=== PATIENT | female | born 1955 | race Caucasian/White ===

== ENCOUNTER 2018-04-08 06:08 | Observation (INO) | payer BC, SELFPAY ==
[2018-04-08] VITALS (9 sets, daily range): BP systolic 97–156; BP diastolic 58–83; PULSE 61–69; RESP 15–25; TEMP 36.4–36.7; O2SAT 93–99; BMI 31.2; BMI 30.1; BMI 30.2
--- NOTE | 2018-04-08 06:11 | ED.RN ---
CALLED FOR EKG PER RN REQUEST, NO OLD EKGS IN MUSE
--- NOTE | 2018-04-08 06:21 | ED.DCSUM_ITS ---
- ER Visit Summary Date of Service: 04/08/18 Chief Complaint: [] Chest pain History of Present Illness: The patient is a 62 F planing of chest pain for last 2 hours gradual onset came on at work when she was resting. Continuous heaviness substernal radiation left arm current severity moderate to severe. She took aspirin 182 milligrams as well as Lopressor. She had a tight sensation in her left arm. Associated with some mild nausea mild lightheadedness. She does have history of hypertension high cholesterol smoking. Her last stress test was 2 years ago at [facility] that showed nothing acute. She had a heart cath 10 years ago that showed no ischemia. This was when she was diagnosed with pericarditis. She does have a history of mitral valve prolapse. Physical Examination: [] Vital signs reviewed General: Well-nourished well-developed Head: Normocephalic atraumatic Eyes: Pupils equal round and reactive to light extraocular movements intact ENT: TMs clear no hemotympanum no trauma Neck: Nontender full range of motion Cardiovascular: Regular rate rhythm no murmurs normal S1-S2 Respiratory: No distress clear to auscultation bilaterally chest nontender Abdomen: Soft nontender nondistended normal bowel sounds no masses Back: Nontender no CVA tenderness Extremities: Nontender active range of motion ?4 extremities no trauma Skin: Normal color no trauma Neuro alert oriented cranial nerves II through XII intact normal strength sensation reflexes Test Results: [] Emergency Department Course and Treatment: [] EKG shows sinus rhythm at a rate of 69. No acute ischemia findings. Lab work chest x-ray obtained. Patient given sublingual nitroglycerin. This dropped her pressure to 90s but she feels significantly better. Chest x-ray lab work unremarkable. She will be admitted for cardiac rule out further evaluation Treatment Plan: [] Disposition: [] Impression: [] Chest pain This note was generated with Move[employer] dictation software. It may contain incorrect words, spelling, and punctuation that were not noted in review of the chart prior to signing ED Disposition - Plan for ED Patient: Chief Complaint: Chest Pain Referrals: [facility] Doctor,Out of [NON-STAFF] -
[2018-04-08 07:00] LABS: Absolute Lymphocyte Count 2.75 X10^3/ul (0.83-4.51); Absolute Neutrophil Count 3.7 X10^3/uL (2.0-7.7); Basophil# 0.05 X10^3/uL; Basophil% 0.7 % (0-1); Differential Indicated SCAN CRITERIA MET; Eosinophil# 0.17 X10^3/uL; Eosinophils% 2.2 % (0-5); Hemoglobin 13.8 g/dl (12.0-15.0); Lymphocyte # 2.75 X10^3/ul (4.0); Mean Corp Hgb Conc 32.9 g/gl (32-36); Mean Corpuscular Hgb 30.3 pg (27.0-32.0); Mean Corpuscular Volume 92.1 fL (81-99); Mean Platelet Vol. 9.3 fl (6.2-12.0); Monocyte# 0.93 X10^3/uL; Monocyte% 12.2 % (0-10); Neutrophil # 3.72 X10^3/uL (2.7-7.7); Neutrophil % 48.8 % (47-70); POSITIVE COUNT NO; POSITIVE DIFFERENTIAL NO; POSITIVE MORPHOLOGY YES; Platelet Count 313 K/mm3 (150-450); RBC Distribution Width CV 13.9 % (11.6-14.6); RBC Distribution Width SD 45.4 fl (35.1-43.9); Red Blood Count 4.56 M/mm3 (4.2-5.4); White Blood Count 7.6 K/mm3 (4.4-11.0)
[2018-04-08 07:04] LABS: Anion Gap 10 (5-15); BUN 14 mg/dL (7-18); BUN/Creat Ratio 10.1 RATIO (10-20); Calcium,Total 8.8 mg/dL (8.5-10.1); Chloride 108 mmol/L (98-107); Creatinine, Serum 1.39 mg/dL (0.55-1.02); EST Glomerular Filtration Rate 41 mL/min (>60); Est Glom Filt Rate - Afr Amer 49 mL/min (>60); Estimated Creatinine Clearance 31.67 ml/min; Glucose 106 mg/dL (74-106); Potassium 3.9 mmol/L (3.5-5.1); Sodium Level 141 mmol/L (136-145)
--- NOTE | 2018-04-08 07:09 | NURSING ---
DR NIGHAT GONZALES
--- NOTE | 2018-04-08 07:13 | NURSING ---
GUANAKITO DISLA/CHRISTIAN
--- NOTE | 2018-04-08 07:25 | NURSING ---
DR DISLA IN WITH PATIENT
[2018-04-08] MEDS: CLARIFY ORDER NOTE ×2 (08:16)
--- NOTE | 2018-04-08 10:13 | PCM.HP.STD ---
Problem List (1) Chest pain Status: Acute History of Present Illness Date of Admission: 04/08/18 Chief Complaint: chest pain The patient is a 62 year old F with a past medical history of psoriasis with psoriatic arthritis, hypertension and extensive smoking history. She was admitted by the ED on 04/08/2018 with complaint of chest pain. Chest pain that started about 1 day prior, was left-sided, pressure-like and said it was like a band around her left arm and radiated to her left shoulder. She had associated palpitations and dizziness as well as diaphoresis. She however denied nausea vomiting. She had no associated fever chills, cough, abdominal pain. She has similar pain in the past and had a stress test that she states was negative. She also had a TIA a few years ago and states that a stress test and that was also negative. She therefore decided to come into the ED. Temperature was 97.5 Fahrenheit, blood pressure was 09/03/1968, and she was saturating at 97% on 2 L of oxygen. Troponins done were negative. She was admitted and is to be worked up for chest pain to rule out acute coronary syndrome. [] Past Medical History Allergies acetaminophen [From Darvocet-N 100] Allergy (Verified 04/08/18 06:12) Hives Penicillins [PCN] Allergy (Verified 04/08/18 06:12) Hives propoxyphene napsylate [From Darvocet-N 100] Allergy (Verified 04/08/18 06:12) Hives Home Medications: Ambulatory Orders Medication Instructions Recorded Aspirin [Aspirin, Baby] 81 mg PO DAILY 02/01/15 Methotrexate 10 mg PO Q7D 02/01/15 Quinapril HCl [Accupril] 20 mg PO DAILY 02/01/15 Metoprolol Tartrate [Lopressor] 50 mg PO DAILY 04/08/18 Nitroglycerin 0.4 mg SL PRN PRN #30 tab.subl 04/08/18 Simvastatin [Zocor] 10 mg PO QHS 04/08/18 Surgical History: no surgical history Psychiatric History: No pertinent psych hx [employer]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 Denies: Chest Tightness, Edema, Heaviness, Light Headedness, Orthopnea, Palpitations, Paroxysmal Noc. Dyspnea, Syncope Respiratory: Denies: Cough, Shortness of Breath, Shortness of breath at rest, Shortness of breath upon exertion, Sputum production, Wheezing Gastrointestinal: Denies: Abdominal Pain, Nausea, Vomiting Genitourinary: Denies: Dysuria Musculoskeletal: Denies: Joint Pain, Joint Tenderness Skin: Denies: Rash, Wounds Neurological: Denies: Numbness, Tingling, Focal weakness Psychiatric: Denies: Anxiety, Depression, Homicidal Ideations, Suicidal Ideations Hematologic/ Lymphatic: Denies: Easy Bruising, Easy Bleeding VTE Information - Inpt Only VTE Present on Admission: No VTE Mechan Device Prophylaxis: None VTE Pharm Prophylaxis ordered?: Yes Patient Problems: Active and Suspected Problems Chest pain (Acute) - Physical Exam General: Alert, Oriented x3, Cooperative, No apparent distress HEENT: Atraumatic, PERRLA, EOMI, Normocephalic Oral: Moist Mucosa Neck: Supple, No JVD, Negative Carotid Bruits Lungs: Clear to auscultation, Normal air movement, No rhonchi, No wheeze, No rales Cardiovascular: Regular rate, Normal S1, Normal S2, No murmurs Abdomen: Bowel Sounds Present, Soft, Non Tender, Non-Distended, No Hepato-splenomegaly Extremities: No clubbing, No cyanosis, No edema, Capillary Refill Less than 3 Seconds Skin: No rashes, No breakdown Musculoskeletal: No Tenderness to Palpation of Joints or Extremities Lymphatic: No Cervical, Supraclavicular, or Inguinal Adenopathy Neurological: Cranial nerves II-XII grossly intact, Neuro grossly intact, Motor Exam 5/5 strength throughout Psych/Mental Status: Normal Affect, Appropriate, Alert and oriented to time, place, person, mood and affect Vital Signs Temp Pulse Resp BP Pulse Ox 97.5 F L 61 16 123/69 H 99 04/08/18 07:55 04/08/18 07:55 04/08/18 07:55 04/08/18 07:55 04/08/18 07:55 Oxygen Delivery Method Room Air Weight: 159 lb 9.835 oz Body Mass Index (BMI) 30.1 Laboratory Tests 04/08/18 04/08/18 06:20 06:20 WBC 7.6 RBC 4.56 Hgb 13.8 Hct 42.0 MCV 92.1 MCH 30.3 MCHC 32.9 RDW 13.9 RDW Differential 45.4 H Plt Count 313 MPV 9.3 Immature Gran % (Auto) 0.100 Neut % (Auto) 48.8 Lymph % (Auto) 36.0 Alfalfa % (Auto) 12.2 H Eos % (Auto) 2.2 Baso % (Auto) 0.7 Absolute Neuts (auto) 3.7 Absolute Lymphs (auto) 2.75 Total Counted Not Reportable Sodium 141 Potassium 3.9 Chloride 108 H Carbon Dioxide 23.0 Anion Gap 10 BUN 14 Creatinine 1.39 H Estim Creat Clear Calc 31.67 Est GFR (MDRD) Af Amer 49 L Est GFR (MDRD) Non-Af 41 L BUN/Creatinine Ratio 10.1 Glucose 106 Calcium 8.8 Troponin I < 0.015 Diagnostic Data Chest X-Ray 04/08/18 06:18 IMPRESSION: No evidence for acute cardiopulmonary pathology. Electronically Signed: Kirit Porter MD at 6:46 EDT , Service support , Assessment/Plan All Active Problems Chest pain (Acute) 1. Chest pain presented with chest pain that started whilst at work earlier today, and was lifting a patient. Had associated diaphoresis and lightheadedness as well as palpitations. Has had 2 stress tests in the past for similar chest pain and TIA and states that was negative. Factors include hypertension, significant of smoking history of 44 pack years and significant cardiac history in both parents. Initial troponin was negative. His pain got better with administration of sublingual nitroglycerin. Admit to PCU with telemetry. Aspirin 81 mg daily, atorvastatin 40 mg daily, sublingual nitroglycerin 0.4 mg as needed. Will do stress test and echo. 2. Hypertension fairly controlled. on lisinopril and metoprolol. Will continue 3. DARRYN: Cr is 1.39, baseline ~ 1 from 2014. Will rehydrate with IVF. 4. Psoriasis with psoriatic arthritis stable. On methotrexate 5. Nicotine dependence: has 44 pack year history. Nicotine patch 21mg daily. DVT prophylaxis: Lovenox CODE STATUS: Full code. Patient counseled extensively about different types of CODE STATUS: Patient counseled about differences between DNR CCA DNR CCA and full code. Patient elects to be full code. Total face to face time 17 minutes This note was generated with threadsyation software. It may contain incorrect words, spelling, and punctuation that were not noted in checking the note before signing. Code Visit OBSV E&M: 00032 Initial observation care L3 Procedures: 86155 Advncd Care Plan 30 Min
--- NOTE | 2018-04-08 13:07 | STRESSREP ---
Stress Test Report Date: 04/08/2018 Procedure: Pharmacologic stress nuclear imaging study Indications: Chest pain Consent: Per the patient Procedure: The patient underwent pharmacologic (Regadenoson) evaluation with a peak heart rate of 76 beats per minute (48 predicted maximal heart rate) and a peak blood pressure of 126/66 mmHg. The baseline ECG demonstrated normal sinus rhythm. The peak pharmacologic ECG demonstrated no obvious ECG changes. There were no cardiac dysrhythmias pretest, during pharmacologic infusion, or recovery. The patient noted transient shortness of breath and jaw discomfort during recovery with spontaneous resolution. The examination was discontinued secondary to completion of protocol. Impression: 1. Pharmacologic (Regadenoson) evaluation 2. Peak pharmacologic ECG with no obvious ECG changes. 3. There were no cardiac dysrhythmias pretest, during pharmacologic infusion, or recovery 4. Nuclear images pending Myocardial perfusion imaging study: Technique: The patient was injected with 10.5 millicuries of technetium 99m Cardiolite and subsequently rest SPECT Cardiolite nuclear imaging was obtained in the horizontal long, vertical long, and short axis views. The patient underwent pharmacologic (Regadenoson) evaluation with a peak heart rate of 76 beats per minute (48 % percent predicted maximal heart rate) and a peak blood pressure of 126/66 mmHg. The patient was injected with 31.2 millicuries of technetium 99m Cardiolite and subsequently stress SPECT Cardiolite nuclear imaging was obtained in the horizontal long, vertical long, and short axis views. A gated Cardiolite study at peak stress was obtained. Interpretation: Rest and stress SPECT Cardiolite nuclear imaging status post realignment, normalization, and attenuation correction demonstrate a small area of subtle diminished tracer uptake near the apical segments which appears, on the polar maps, somewhat more prominent at rest as opposed to stress and otherwise appearing to demonstrate relative uniform tracer uptake and myocardial perfusion within normal limits. There is end systolic thickening and brightening. The gated Cardiolite study demonstrates myocardial thickening and inward wall motion. The reported LVEF is 75 %. Impression: 1. Stent stress SPECT currently nuclear imaging demonstrate a small area of subtle diminished tracer uptake near the apical segments which appears, on the polar maps, somewhat more prominent at rest as opposed to stress, appearing compatible with shifting soft tissue attenuation/artifact and/or physiologic apical thinning, and otherwise appearing to demonstrate relative uniform tracer uptake and myocardial perfusion within normal limits with no myocardial perfusion changes considered diagnostic for associated stress-induced myocardial ischemia or previous myocardial injury/infarction. 2. The gated Cardiolite study reports an LVEF of 75%. This note was generated with [employer] software. It may contain incorrect words, spelling, and punctuation that were not noted in checking the note before signing.
[2018-04-08] MEDS: Heparin Injection (Vial) 5,000 UNIT/ML VIAL 5000 UNIT SC (13:50)
--- NOTE | 2018-04-08 14:48 | PCM.DC ---
- Discharge Diagnoses Current Active Problems: Current Active and Chronic Problems Chest pain (Acute) You will use the following diet at home:: Cardiac Your food should be the consistency of: Regular Your liquids should be the consistency of: Regular/Thin Discharge Activity: Return to Normal Activity Weight Bearing Status: Weight bearing as tolerated Call your doctor if you observe: Shortness of breath, Chest pain Instructions: Warning Signs of a Heart Attack, ED Heart Disease Risk Factors Allergies/Adverse Reactions: Allergies acetaminophen [From Darvocet-N 100] Allergy (Verified 04/08/18 06:12) Hives Penicillins [PCN] Allergy (Verified 04/08/18 06:12) Hives propoxyphene napsylate [From Darvocet-N 100] Allergy (Verified 04/08/18 06:12) Hives Medications to take at Discharge Aspirin [Aspirin, Baby] 81 mg PO DAILY 02/01/15 Methotrexate 10 mg PO Q7D 02/01/15 Quinapril HCl [Accupril] 20 mg PO DAILY 02/01/15 Metoprolol Tartrate [Lopressor] 50 mg PO DAILY 04/08/18 Nitroglycerin 0.4 mg SL PRN PRN #30 tab.subl 04/08/18 Simvastatin [Zocor] 10 mg PO QHS 04/08/18 The following prescriptions were given: Nitroglycerin 0.4 mg SL PRN PRN #30 tab.subl PRN Reason: Cardiac/Chest Pain Primary Care Physician: [facility] Doctor,Out of [NON-STAFF] - Please follow up with your Primary Care Physician in: one week Test Results: Test results from this visit will be discussed in further detail at your follow-up appointment, if applicable. Proposed Discharge Date: 04/08/18
--- NOTE | 2018-04-08 14:53 | PCM.DC.SUM ---
Discharge Date and Diagnosis - Problem List Patient Problems: Active and Suspected Problems Chest pain (Acute) Date of Admission: 04/08/18 Date of Discharge: 04/08/18 - Primary Discharge Diagnosis Active and Suspected Problems Chest pain (Acute) Hospital Course and Treatment Imaging Results: 04/08/18 08:04 Echo Complete [ECHO] Routine Nuclear Stress Test - Chemical [NM] Urgent Laboratory Tests 04/08/18 04/08/18 04/08/18 06:20 06:20 11:20 WBC 7.6 RBC 4.56 Hgb 13.8 Hct 42.0 MCV 92.1 MCH 30.3 MCHC 32.9 RDW 13.9 RDW Differential 45.4 H Plt Count 313 MPV 9.3 Immature Gran % (Auto) 0.100 Neut % (Auto) 48.8 Lymph % (Auto) 36.0 [place] % (Auto) 12.2 H Eos % (Auto) 2.2 Baso % (Auto) 0.7 Absolute Neuts (auto) 3.7 Absolute Lymphs (auto) 2.75 Total Counted Not Reportable Sodium 141 Potassium 3.9 Chloride 108 H Carbon Dioxide 23.0 Anion Gap 10 BUN 14 Creatinine 1.39 H Estim Creat Clear Calc 31.67 Est GFR (MDRD) Af Amer 49 L Est GFR (MDRD) Non-Af 41 L BUN/Creatinine Ratio 10.1 Glucose 106 Calcium 8.8 Troponin I < 0.015 < 0.015 04/08/18 12:32 WBC RBC Hgb Hct MCV MCH MCHC RDW RDW Differential Plt Count MPV Immature Gran % (Auto) Neut % (Auto) Lymph % (Auto) [place] % (Auto) Eos % (Auto) Baso % (Auto) Absolute Neuts (auto) Absolute Lymphs (auto) Total Counted Sodium Potassium Chloride Carbon Dioxide Anion Gap BUN Creatinine Estim Creat Clear Calc Est GFR (MDRD) Af Amer Est GFR (MDRD) Non-Af BUN/Creatinine Ratio Glucose Calcium Troponin I < 0.015 Diagnostic Data Chest X-Ray 04/08/18 06:18 IMPRESSION: No evidence for acute cardiopulmonary pathology. Electronically Signed: Kirit Porter MD at 6:46 EDT , Service support , Stres test result 1. Stent stress SPECT currently nuclear imaging demonstrate a small area of subtle diminished tracer uptake near the apical segments which appears, on the polar maps, somewhat more prominent at rest as opposed to stress, appearing compatible with shifting soft tissue attenuation/artifact and/or physiologic apical thinning, and otherwise appearing to demonstrate relative uniform tracer uptake and myocardial perfusion within normal limits with no myocardial perfusion changes considered diagnostic for associated stress-induced myocardial ischemia or previous myocardial injury/infarction. 2. The gated Cardiolite study reports an LVEF of 75%. 2D echo results Left ventricular systolic function is normal. The estimated ejection fraction is 65 %. Mild (1+) eccentric mitral valve insufficiency. Trivial tricuspid valve insufficiency. Right ventricular systolic pressure estimated to be 23 mmHg. No evidence for diastolic dysfunction. Operations: None Procedures: 2-D Echocardiogram, Stress test Summary of Care Provided: The patient is a 62 year old F with a past medical history of psoriasis with psoriatic arthritis, hypertension and extensive smoking history. She was admitted by the ED on 04/08/2018 with complaint of chest pain. Chest pain that started about 1 day prior, was left-sided, pressure-like and said it was like a band around her left arm and radiated to her left shoulder. She had associated palpitations and dizziness as well as diaphoresis. She however denied nausea vomiting. She had no associated fever chills, cough, abdominal pain. She has similar pain in the past and had a stress test that she states was negative. She also had a TIA a few years ago and states that a stress test and that was also negative. She therefore decided to come into the ED. Temperature was 97.5 Fahrenheit, blood pressure was 09/03/1968, and she was saturating at 97% on 2 L of oxygen. Troponins done were negative. She was admitted and is to be worked up for chest pain to rule out acute coronary syndrome. Stress test done was negative and 2D echo findings were normal. Echo showed EF of 65% and no evidence of diastolic dysfunction with no regional wall motion abnormalities noted. RVSP was estimated to be 23 mmHg. She also had DARRYN with Cr of 1.39, baseline from 2014being ~ 1. She was hydrated with IVF. Patient remained stable and was discharged home on 04/08/2018. She is to follow-up with her primary care doctor in 1 week. Patient counseled strongly about quitting smoking. She was given a prescription for sublingual nitroglycerin 0.4 mg as needed. She was counselled to drink lots of fluids to flush out her kidneys. She is continue taking aspirin, metoprolol, lisinopril and simvastatin. [] Discharge Activity: Return to Normal Activity Weight Bearing Status: Weight bearing as tolerated Call your doctor if you observe: Shortness of breath, Chest pain Home Medications: Medications to take at Discharge Aspirin [Aspirin, Baby] 81 mg PO DAILY 02/01/15 Methotrexate 10 mg PO Q7D 02/01/15 Quinapril HCl [Accupril] 20 mg PO DAILY 02/01/15 Metoprolol Tartrate [Lopressor] 50 mg PO DAILY 04/08/18 Nitroglycerin 0.4 mg SL PRN PRN #30 tab.subl 04/08/18 Simvastatin [Zocor] 10 mg PO QHS 04/08/18 Following Prescrptions Were Given to Patient: Nitroglycerin 0.4 mg SL PRN PRN #30 tab.subl PRN Reason: Cardiac/Chest Pain Primary Care Physician: [facility] ,Out of [NON-STAFF] - Please follow up with your Primary Care Physician in: one week Patient Instructions: Warning Signs of a Heart Attack, ED Heart Disease Risk Factors Disposition: Home Minutes spent on discharge:: 35 Patient Condition:: Stable Medical Necessity - Tobacco Use Smoking Status: Current every day smoker - 44 pack year smoking history Meaningful Use Info Meaningful Use Diagnoses (Choose all that apply): None applicable Code Visit Inpatient E&M: 41147 Disch Hosp
== END 2018-04-08 14:49 | disposition home or self-care (01) ==
LOC: ED 07:21 → PCU 07:38
PROVIDERS: Admitting Provider Student in an Organized Health Care Education/Training Program; Emergency Provider Emergency Medicine; Family Provider Family Medicine; PCP Family Medicine; Visit Provider Student in an Organized Health Care Education/Training Program
DX: R07.89 Other chest pain (principal); L40.50 Arthropathic psoriasis, unspecified; I10 Essential (primary) hypertension; Z79.899 Other long term (current) drug therapy; Z79.82 Long term (current) use of aspirin; F17.200 Nicotine dependence, unspecified, uncomplicated; N17.9 Acute kidney failure, unspecified; I08.1 Rheumatic disorders of both mitral and tricuspid valves
CPT/HCPCS: 36415; 71045; 78452; 80048; 84484; 85025; 93005; 93017; 93306; 96372; 99218; 99283; 99406; A9500; A4216; G0378; J2785

== ENCOUNTER 2018-04-18 11:38 | Observation (INO) | payer BC, SELFPAY ==
[2018-04-17 07:54] VITALS: BMI 30.2
[2018-04-18] VITALS (36 sets, daily range): BP systolic 121–187; BP diastolic 13–87; PULSE 59–81; RESP 9–18; TEMP 36.7–36.8; O2SAT 96–100; BMI 31.1
--- NOTE | 2018-04-18 12:00 | EKG12_ITS ---
Test Reason : POST PCI Blood Pressure : / mmHG Vent. Rate : 063 BPM Atrial Rate : 063 BPM P-R Int : 186 ms QRS Dur : 080 ms QT Int : 404 ms P-R-T Axes : 068 026 034 degrees QTc Int : 413 ms Normal sinus rhythm Low voltage QRS Septal infarct (cited on or before 08-APR-2018) Abnormal ECG When compared with ECG of 08-APR-2018 06:09, No significant change was found Confirmed by KEITH LEOS, GUERO ([id number]), graphics editor SOM WAHL ([id number]) on 04/23/2018 2:09:44 PM Referred By: Kris Woodson Confirmed By:GUERO PARKER MD
[2018-04-18] MEDS: 0.9% Normal Saline 1,000 ML 150 ML IV (12:27)
[2018-04-18 13:56] LABS: ACT Activated Clotting Time 208 sec (74-137)
[2018-04-18 14:16] LABS: ACT Activated Clotting Time 153 sec (74-137)
--- NOTE | 2018-04-18 15:22 | CRPHASE1 ---
Patient Data/Charges Phase II Referral:: [facility] Start Phase II:: FOLLOWING OFFICE VISIT WITH REGISTERED ACCOUNT ADMINISTRATOR Risk Factors/Lifestyle Smoking Status: Current every day smoker Hx Hypertension: Yes Hx Diabetes Mellitus Type 1: No Hx Diabetes Mellitus Type 2: No Hx Metabolic Disorders: No Hx Dyslipidemia: No Hx Obesity: Yes Height: 5 ft 7 in - BMI 31.2 Post-Menopausal: Yes Stress: Home/Family Risk Factor for Sedentary Lifestyle: Moderate Risk Family History: Family History (Last Reviewed 04/15/18 @ 12:52 by Marjorie Crowder) Father Congestive heart failure Diabetes Hypertension Mother CAD (coronary artery disease) Diabetes Hypertension Family History: Diabetes, Heart Disease, Hypertension Phase I Education Given On:: [place], Nutrition, Antiplatelet medication, Smoking cessation Issues Affecting Care:: None Knowledge of Condition:: Yes Learning Preferences: Verbal, Written Medical/Surgical History AR:: No CAD:: No Diabetes:: No Hypertension:: Yes Arthritis:: Yes - PSORIATIC Discharge/Home/Social Eval Discharge Disposition: Home
--- NOTE | 2018-04-18 15:26 | CRPHASE1_ITS ---
Patient Data/Charges Phase II Referral:: [facility] Start Phase II:: FOLLOWING OFFICE VISIT WITH NOUGAT CUTTER MACHINE Risk Factors/Lifestyle Smoking Status: Current every day smoker Hx Hypertension: Yes Hx Diabetes Mellitus Type 1: No Hx Diabetes Mellitus Type 2: No Hx Metabolic Disorders: No Hx Dyslipidemia: No Hx Obesity: Yes Height: 5 ft 7 in - BMI 31.2 Post-Menopausal: Yes Stress: Home/Family Risk Factor for Sedentary Lifestyle: Moderate Risk Family History: Family History (Last Reviewed 04/15/18 @ 12:52 by Marjorie Crowder) Father Congestive heart failure Diabetes Hypertension Mother CAD (coronary artery disease) Diabetes Hypertension Family History: Diabetes, Heart Disease, Hypertension Phase I Education Given On:: [place], Nutrition, Antiplatelet medication, Smoking cessation Issues Affecting Care:: None Knowledge of Condition:: Yes Learning Preferences: Verbal, Written Medical/Surgical History [place]:: No CAD:: No Diabetes:: No Hypertension:: Yes Arthritis:: Yes - PSORIATIC Discharge/Home/Social Eval Discharge Disposition: Home
--- NOTE | 2018-04-18 15:28 | CRPH1.INST_ITS ---
General Education CAD and cardiac anatomy and function:: Patient communicates acknowledgment Explanation of diagnoses and procedures:: Patient communicates acknowledgment Sign/Symptoms of NV:: Patient communicates acknowledgment Antiplatelet therapy: Patient communicates acknowledgment Proper use of NTG-SL: Patient communicates acknowledgment Emergency procedures and activation of EMS: Patient communicates acknowledgment Compliance of all prescribed medications: Patient communicates acknowledgment Smoking Patient Nicotine/Smoking Risk Factors Are:: Cigarettes Recommendations Include:: Smoking cessation strategies/Smoking packet, Participation in a smoking cessation program Nicotine/Smoking Response Code:: Patient communicates acknowledgment Dyslipidemia Recommendations Include:: Lipid profile not available, Reviewed NCEP/ATP guidelines, Therapeutic Lifestyle Change dietary guidelines Dyslipidemia Response Code:: Patient communicates acknowledgment Overweight/Obesity Patient Overweight/Obesity Risk Factors Are:: Obesity - > or = 30 Recommendations Include:: Weight loss of 5-10%, Reduced calorie diet, Exercise 5 -7 times/week Overweight/Obesity:: Patient communicates acknowledgment Hypertension Recommendations Include:: Maintain BP <130/85, DASH dietary guidelines, Decrease /maintain normal body weight, Moderation of ETOH Hypertension:: Patient communicates acknowledgment Heart Disease Patient Heart Disease Risk Factors Are:: Family history of heart disease < 65 years old Heart Disease Response Code:: Patient communicates acknowledgment Diabetes Patient Diabetes Risk Factors Are:: No documented hx of diabetes Metabolic Syndrome Recommendations Include:: Does not meet criteria Sedentary Patient Sedentary Risk Factors Are:: Lack of regular exercise Recommendations Include:: Aerobic exercise 5-7 times/week for 20-30 minutes continuously, Benefits of regular exercise, Discussed home walking program, Monitored Outpatient Cardiac Rehab Sedentary Response Code:: Patient communicates acknowledgment Stress Recommendations Include:: Identification of stressors, and assessment of coping skills, Stress management techniques Stress Response Code:: Patient communicates acknowledgment
[2018-04-18] MEDS: Clopidogrel Bisulfate 75 MG Tablet PO (16:20)
--- NOTE | 2018-04-18 16:30 | PCM.DC.CCA ---
Discharge Diet: Low fat/ Low Cholesterol Discharge Activity: Return to Normal Activity May shower in (days): 1 May resume sexual activity in: 1-2 weeks Lifting Restrictions: Do not lift anything greater than 10 pounds for 3 days Call your doctor if your incision/area has: Continuous Slow Oozing, Sudden Increased Bleeding, Increased Pain/ Swelling, Increased Redness, Foul Smelling Discharge, Swelling at the incision site Call your doctor if you observe: Fever of 101 or Higher, Shortness of breath, Chest pain Remove Dressing in (days):: 1 Cleanse incision/area with: Soap & Water Additional Instructions: You will remain on Plavix for at least one year. If anyone asks you to stop it, please call the [facility] first, . You have an appointment scheduled with Dr. Woodson on 05/16/2018 at 10:00 AM. A prescription for new Statin, cholesterol, medication was sent to [facility] on [address] [place] [address]. This medication is Atorvastatin 80mg and you will take this instead of Simvastatin. Take it once a day at night. Allergies/Adverse Reactions: Allergies acetaminophen [From Darvocet-N 100] Allergy (Verified 04/15/18 12:52) Hives Penicillins [PCN] Allergy (Verified 04/15/18 12:52) Hives propoxyphene napsylate [From Darvocet-N 100] Allergy (Verified 04/15/18 12:52) Hives tylenol with codeine Allergy (Severe, Uncoded 04/15/18 14:05) Hives, tightness in chest Medications to take at Discharge Aspirin [Aspirin, Baby] 81 mg PO DAILY 02/01/15 Methotrexate 10 mg PO TH 02/01/15 Quinapril HCl [Accupril] 20 mg PO DAILY 02/01/15 Nitroglycerin 0.4 mg SL PRN PRN #30 tab.subl 04/08/18 metoprolol tartrate 50 mg tablet 50 mg PO BID 04/15/18 Atorvastatin Calcium [Lipitor] 80 mg PO QHS tablet 04/18/18 Clopidogrel Bisulfate [Clopidogrel] 75 mg PO DAILY 04/18/18 Primary Care Physician: Erica Guardado MD [Primary Care Provider] - Test Results: Test results from this visit will be discussed in further detail at your follow-up appointment, if applicable. Please Follow Up With: Dr. Woodson When: 05/16/2018 at 10:00 AM Cardiac Rehabilitation Info Cardiac Rehabilitation Program Information: Cardiac Rehabilitation is important for patients like you who are recovering from a heart problem. Cardiac rehabilitation programs are recognized as integral to the continued care of the patient with coronary heart disease. The cardiac rehabilitation program is designed to optimize a patient's physical, psychological, and social functioning. Health direct care worker work in cardiac rehabilitation programs and assist you with getting the treatments you need to get stronger and healthier - like exercise, healthy eating habits, and medications. Cardiac rehabilitation has been show to help people with heart problems live longer and have better life enjoyment than people who do not go to cardiac rehabilitation. Please contact the Cardiac Rehabilitation Program at [facility] at in two weeks if you have not heard from them.
[2018-04-18] MEDS: Acetaminophen 325 MG Tablet 650 MG PO ×2 (16:41→21:01)
[2018-04-18] MEDS: Metoprolol Tartrate 50 MG Tablet PO (21:44)
[2018-04-19] VITALS (14 sets, daily range): BP systolic 101–152; BP diastolic 40–68; PULSE 61–77; RESP 16–30; TEMP 36.7–36.8; O2SAT 97–99
[2018-04-19 04:58] LABS: Hematocrit 38.8 % (37-47); Hemoglobin 12.8 g/dl (12.0-15.0); Mean Corpuscular Hgb 30.4 pg (27.0-32.0); Mean Corpuscular Volume 92.2 fL (81-99); Mean Platelet Vol. 9.3 fl (6.2-12.0); Platelet Count 244 K/mm3 (150-450); RBC Distribution Width CV 13.6 % (11.6-14.6); RBC Distribution Width SD 45.1 fl (35.1-43.9); Red Blood Count 4.21 M/mm3 (4.2-5.4); Scan Indicated on CBC? Y/N NO; White Blood Count 6.5 K/mm3 (4.4-11.0)
[2018-04-19 05:21] LABS: Anion Gap 8 (5-15); BUN 9 mg/dL (7-18); BUN/Creat Ratio 10.8 RATIO (10-20); Calcium,Total 8.5 mg/dL (8.5-10.1); Chloride 109 mmol/L (98-107); Cholesterol 162 mg/dL (200); Creatinine, Serum 0.84 mg/dL (0.55-1.02); EST Glomerular Filtration Rate 73 mL/min (>60); Est Glom Filt Rate - Afr Amer 89 mL/min (>60); Estimated Creatinine Clearance 67.53 ml/min; Glucose 109 mg/dL (74-106); High Density Lipoprotein 30 mg/dL; Potassium 3.9 mmol/L (3.5-5.1); Sodium Level 142 mmol/L (136-145); Triglycerides 132 mg/dL; Very Low Density Lipoprotein 26 mg/dL (5-40)
[2018-04-19] MEDS: Aspirin 81 MG TAB.CHEW PO (08:20)
[2018-04-19] MEDS: Metoprolol Tartrate 50 MG Tablet PO (08:20)
[2018-04-19] MEDS: Lisinopril 20 MG Tablet PO (08:21)
[2018-04-19] MEDS: Clopidogrel Bisulfate 75 MG Tablet PO (08:21)
--- NOTE | 2018-04-19 08:52 | PCM.PN.CARD ---
Subjectve: Patient doing very well this morning, in fact feels much better. She denies any chest pain. Hemoglobin and creatinine are within nominal limits. Right groin is clean/dry/intact without evidence of thrills, bruits or hematoma. EKG shows normal sinus rhythm, no acute changes. Objective: Vital Signs Temp Pulse Resp BP Pulse Ox 98.3 F 75 30 H 101/59 L 98 04/19/18 05:00 04/19/18 08:20 04/19/18 07:52 04/19/18 08:20 04/19/18 07:52 Oxygen Delivery Method Room Air Weight: 159 lb 13.362 oz Body Mass Index (BMI) 31.1 Intake and Output for Last 24 Hours 04/17/18 04/18/18 04/19/18 23:59 23:59 23:59 Intake Total 1350 / 1350 530 / 530 Output Total 1000 / 1000 400 / 400 Balance 350 / 350 130 / 130 General: Awake, Alert, Oriented x 3 HEENT: PERRL, EOMI, Sclera Non Icteric Neck: Supple, Good ROM, No Lymph Node Enlargement Lungs: Clear to auscultation Cardiovascular: Regular Rhythm, Normal S1, Normal S2, No Murmurs, No Rubs, No Gallops Vascular: No Carotid Bruits, Normal Femoral Pulses, Normal Radial Pulses, Normal Dorsalis Pedal Pulse, Normal Posterior Tibial Pulses Abdomen: Bowel Sounds Present, Soft, Non Tender, No HSM, No Organomegaly Extremities: No Cyanosis, No Clubbing, No edema Neurological: No Focal Motor or Sensory Deficit 04/19/18 04:45: Sodium 142, Potassium 3.9, Chloride 109 H, Carbon Dioxide 25.0, Anion Gap 8, BUN 9, Creatinine 0.84, Est GFR (MDRD) Af Amer 89, Est GFR (MDRD) Non-Af 73, BUN/Creatinine Ratio 10.8, Glucose 109 H, Calcium 8.5, Triglycerides 132, Cholesterol 162, LDL Cholesterol 106, VLDL Cholesterol 26, HDL Cholesterol 30 L 04/19/18 04:45: WBC 6.5, RBC 4.21, Hgb 12.8, Hct 38.8, MCV 92.2, MCH 30.4, MCHC 33.0, RDW 13.6, RDW Differential 45.1 H, Plt Count 244, MPV 9.3 Rhythm: EKG: ECHO: Stress Test: Cardiac Cath: PCI: CT Surgery: Holter monitor: EPS: PPM: CXR: Chest CT Scan: Medical Necessity - Tobacco Use Smoking Status: Current every day smoker Tobacco Use: Cigarettes Assessment/Plan 1. Coronary artery disease: The patient had 2 tandem lesions in her mid right coronary artery receiving a 4.0X 38 Promus Synergy stent with an excellent result. She has some minor possibly significant proximal LAD stenosis however it appeared to be less than 50% by angiography. No flow wire evaluation was performed. At this point I recommend the patient continue baby aspirin, Plavix, antihypertensives, and tobacco cessation. Patient will be seen in our office in 2 weeks time for a groin check followed by enrollment into cardiac rehab. Should the patient have recurrent symptoms I have a low threshold for flow wire evaluation of the proximal LAD. Her left circumflex artery had minimal nonobstructive disease. 2. Hyperlipidemia: Continue statin based medications. Repeat lipid profile in 6 weeks time. 3. Tobacco cessation: I had a long and thorough discussion with the patient regarding tobacco cessation, and she is agreed to quit. 4. Patient may be discharged home. Follow-up with Dr. Woodson. Code Visit Inpatient E&M: 27165 Subs Hosp L2
--- NOTE | 2018-04-19 10:00 | EKG12_ITS ---
Test Reason : AM EKG Blood Pressure : / mmHG Vent. Rate : 065 BPM Atrial Rate : 065 BPM P-R Int : 176 ms QRS Dur : 082 ms QT Int : 388 ms P-R-T Axes : 053 002 041 degrees QTc Int : 403 ms Normal sinus rhythm Low voltage QRS Septal infarct , age undetermined Abnormal ECG When compared with ECG of 18-APR-2018 12:13, MANUAL COMPARISON REQUIRED, DATA IS UNCONFIRMED Confirmed by KEITH LEOS, GUERO ([id number]), science editor SOM WAHL ([id number]) on 04/23/2018 2:09:16 PM Referred By: rKis Woodson Confirmed By:GUERO PARKER MD
== END 2018-04-19 09:30 | disposition home or self-care (01) ==
LOC: ICU 04-19 11:57
PROVIDERS: Admitting Provider Internal Medicine Cardiovascular Disease; Family Provider Family Medicine; PCP Family Medicine; Visit Provider Internal Medicine Cardiovascular Disease
DX: R07.9 Chest pain, unspecified (principal); E78.5 Hyperlipidemia, unspecified; F17.210 Nicotine dependence, cigarettes, uncomplicated; I10 Essential (primary) hypertension; R94.31 Abnormal electrocardiogram [ECG] [EKG]; Z82.49 Family history of ischemic heart disease and other diseases of the circulatory system; Z79.899 Other long term (current) drug therapy; Z79.82 Long term (current) use of aspirin; L40.50 Arthropathic psoriasis, unspecified
CPT/HCPCS: 80048; 80061; 85027; 85347; 92928; 93005; 93458; 96360; 96361; 99218; J7030; J7040; Q9967; C1725; C1769; C1874; C1887; C1894; C9600; G0378; G0379

== ENCOUNTER → 2018-04-24 10:34 | Outpatient (CLI) | payer BC, SELFPAY ==
--- NOTE | 2018-04-24 10:40 | PCM.CR.HP2 ---
CR - History & Physical - General Arrival date:: 04/24/18 Arrival time:: 10:40 Date of Referral:: 04/18/18 Date of CR Evaluation:: 04/24/18 Referring Physician: Dr. Kris Woodson Primary Diagnosis: Z95.5 Coronary artery stenting - History of Present Cardiac Event Onset Date: Enter Onset Date of cardiac illnesses in Comment field below PTCA or coronary stenting:: Yes - Medications Home Medications: Ambulatory Orders Medication Instructions Recorded Aspirin [Aspirin, Baby] 81 mg PO DAILY 02/01/15 Methotrexate 10 mg PO TH 02/01/15 Quinapril HCl [Accupril] 20 mg PO DAILY 02/01/15 Nitroglycerin 0.4 mg SL PRN PRN #30 tab.subl 04/08/18 metoprolol tartrate 50 mg tablet 50 mg PO BID 04/15/18 Clopidogrel Bisulfate [Clopidogrel] 75 mg PO DAILY 04/18/18 atorvastatin 80 mg tablet 80 mg PO QHS #90 tab 04/18/18 - Allergies Allergies/Adverse Reactions: Allergies acetaminophen [From Darvocet-N 100] Allergy (Verified 04/15/18 12:52) Hives Penicillins [PCN] Allergy (Verified 04/15/18 12:52) Hives propoxyphene napsylate [From Darvocet-N 100] Allergy (Verified 04/15/18 12:52) Hives tylenol with codeine Allergy (Severe, Uncoded 04/15/18 14:05) Hives, tightness in chest - Sleep Disorder Evaluation Hx of Sleep Apnea: No Do you snore loudly (louder than talking or can be heard through closed doors)?: No Do you often feel tired/ fatigued/ sleepy during daytime?: No Has anyone observed you stop breathing during sleep?: No History of Hypertension (for STOP score): Yes STOP Results: Negative Advanced Directives - Advanced Directives Power of Practical Nurse Clinical Coordinator: No Living Will: No Advance Directives Information Provided: No Advance Directives on File: No DNR Order?:: No Past Medical History - Past Medical Illness Medical History: Past Medical History (Last Updated 04/21/18 @ 08:44 by Marjorie Crowder) Atherosclerotic heart disease of [place] coronary artery without angina pectoris (Chronic) I25.10 Synergy 4.0 X 38 mm to mid RCA per Dr. Woodson @ [facility] Shortness of breath (Chronic) R06.02 Tobacco abuse (Chronic) Z72.0 Psoriatic arthritis (Chronic) L40.50 History of TIA (transient ischemic attack) (Chronic) Z86.73 Hypertension (Chronic) I10 Hyperlipidemia (Chronic) E78.5 Chest pain (Acute) R07.9 - Past Surgical History Surgical History: Past Surgical History (Last Updated 04/21/18 @ 08:44 by Marjorie Crowder) Stented coronary artery (Chronic) Onset Date: 04/18/18 Z95.5 Synergy 4.0 X 38 mm to mid RCA per Dr. Woodson @ [facility] History of left heart catheterization (Chronic) Onset Date: ~1999 Z98.890 Done @ [facility]: Negative for CAD Surgical History: no surgical history - Family History Summary Family History: Family History (Last Reviewed 04/15/18 @ 12:52 by Marjorie Crowder) Father , age 55 Congestive heart failure Diabetes Hypertension Mother CAD (coronary artery disease) Diabetes Hypertension Social History - Smoking History Smoking Status: Current every day smoker Years Smokin Packs Smoked per Day: 0.5 Hx Tobacco Use: Yes Hx Smoking Exposure: Yes - Alcohol Use Alcohol Usage: Yes - socially - Substance Abuse Hx Substance Use: No - Occupation Occupation (List type of work in comments):: Employed Hours worked per day:: 8 Returned to work on:: 04/28/18 - Hobbies, Recreation, Social Activities Hobbies: Reading Recreational Activities: I am able to engage in all my recreational activities Social Environment - Status Marital Status: - Current Living Arrangements Living Environment:: Spouse - Children How many children do you have?: 3 Do any of your children live nearby?: Yes - Safety Do you feel safe in your surroundings?: Yes - Assistance Do you need any assistance at home?: none Review of Systems - Review of Systems Hints: Right click = Denies (Slash). Left click = Reports ([place]) Review of Present Symptoms: Reports: Shortness of Breath with Exertion, Fatigue, Sleep - Normal. Denies: Shortness of Breath at Rest, PVD, Operative Discomfort, Angina, Wound Healing, Dizziness/Lightheadedness, Heart Arrhythmia/Irregularities, Appetite - Normal, Appetite - Special Diet, Sexual Changes - Pain Is Patient Pain Free?: Yes Risk Factor Assessment - Chief Complaint Chief Complaint: Z95.5 - Vital Signs Pulse Ox: 97 - Pulse Pulse Rate: 80 Pulse Rhythm: Regular - Hypertension Blood Pressure Sitting - Left Arm: 100/60 - Diabetes Nutrition Referral for Diabetes: No - Obesity Height: 1.55 m Weight:: 72.575 kg Weight in Pounds: 160.0 lbs Weight Source: Standing Scale Body Mass Index (BMI): 30.2 Nutritional Referral for Obesity: No - Physical Inactivity Physical Inactivity: Physically demanding job - Risk Stratification Risk Guidelines: Moderate Risk: Risk Factor for Diabetes, Risk Factor for Obesity, Risk Factor for Sedentary Lifestyle, Risk Factor for Depression, Highest Risk: Risk Factor for Smoking, Risk Factor for Dyslipidemia, Risk Factor for Hypertension - For Smoking Smoking Risk Guidelines: Smoking Low Risk: None or quit greater than 6 months ago. Smoking Moderate Risk: Smoker or quit 6 months or less ago. Smoking High Risk: Smoker - For Dyslipidemia Dyslipidemia Risk Guidelines: Low Risk: Moderate Risk: High Risk: 15-25% fat 25.1-29% fat >/= 30% fat. <7% sat fat 7-9% sat fat >9% sat fat. <150 mg chol 150-299 mg chol >/= 300 mg chol. LDL <100 LDL 100-129 LDL >/= 130. Chol/HDL ratio <5.0 Chol/HDL ratio 5.0-6.0 Chol/HDL ratio >6.0. Triglycerides <100 Triglycerides 100-149 Triglycerides >/= 150 - For Diabetes Mellitus Diabetes Risk Guidelines: Diabetes Low Risk: HgA1c <6.5% and/or FBG <120. Diabetes Moderate Risk: HgA1c 6.6-7.9% and/or FBG 120-180. Diabetes High Risk: HgA1c >/= 8% and/or FBG >180 - For Obesity/Overweight Obesity/Overweight Risk Guidelines: Obesity Low Risk: BMI <25.0. Obesity Moderate Risk: BMI 25-29.9. Obesity High Risk: BMI >/= 30.0 - For Hypertension Hypertension Risk Guidelines: Hypertension Low Risk: Systolic <120 and Diastolic <80. Hypertension Moderate Risk: Systolic 120-139 and Diastolic 80-89. Hypertension High Risk: Systolic >/= 140 and Diastolic >/= 90 - For Sedentary Lifestyle Sedentary Lifestyle Risk Guidelines: Sedentary Lifestyle Low Risk: >/= 1,500 kcal/week. Sedentary Lifestyle Moderate Risk: 700-1,499 kcal/week. Sedentary Lifestyle High Risk: < 700 kcal/week - For Depression Depression Risk Guidelines: Depression Low Risk: Not clinically depressed. Depression Moderate Risk: Mildly depressed. Depression High Risk: Clinically depressed - Family History Family History: Family History (Last Reviewed 04/15/18 @ 12:52 by Marjorie Crowder) Father Congestive heart failure Diabetes Hypertension Mother CAD (coronary artery disease) Diabetes Hypertension Motivation - Motivation to Participate On a scale of 1 to 10, how prepared are you to commit to attending program?: 10 What do you see as barriers to successfully being able to complete the program?: none What do you see as the benefits of succesfully completing the program? In other words, what do you hope to get out of participating in the program?: improved health Are there issues you are dealing with that will interfere with completing the program?: none Do you have a spouse or signficant other, family or friends who will help support you to complete the program?: yes
--- NOTE | 2018-04-24 10:44 | CR.HP_ITS ---
CR - History & Physical - General Arrival date:: 04/24/18 Arrival time:: 10:40 Date of Referral:: 04/18/18 Date of CR Evaluation:: 04/24/18 Referring Physician: Dr. Kris Woodson Primary Diagnosis: Z95.5 Coronary artery stenting - History of Present Cardiac Event Onset Date: Enter Onset Date of cardiac illnesses in Comment field below PTCA or coronary stenting:: Yes - Medications Home Medications: Ambulatory Orders Medication Instructions Recorded Aspirin [Aspirin, Baby] 81 mg PO DAILY 02/01/15 Methotrexate 10 mg PO TH 02/01/15 Quinapril HCl [Accupril] 20 mg PO DAILY 02/01/15 Nitroglycerin 0.4 mg SL PRN PRN #30 tab.subl 04/08/18 metoprolol tartrate 50 mg tablet 50 mg PO BID 04/15/18 Clopidogrel Bisulfate [Clopidogrel] 75 mg PO DAILY 04/18/18 atorvastatin 80 mg tablet 80 mg PO QHS #90 tab 04/18/18 - Allergies Allergies/Adverse Reactions: Allergies acetaminophen [From Darvocet-N 100] Allergy (Verified 04/15/18 12:52) Hives Penicillins [PCN] Allergy (Verified 04/15/18 12:52) Hives propoxyphene napsylate [From Darvocet-N 100] Allergy (Verified 04/15/18 12:52) Hives tylenol with codeine Allergy (Severe, Uncoded 04/15/18 14:05) Hives, tightness in chest - Sleep Disorder Evaluation Hx of Sleep Apnea: No Do you snore loudly (louder than talking or can be heard through closed doors)? : No Do you often feel tired/ fatigued/ sleepy during daytime?: No Has anyone observed you stop breathing during sleep?: No History of Hypertension (for STOP score): Yes STOP Results: Negative Advanced Directives - Advanced Directives Power of Diecast Machine Operator: No Living Will: No Advance Directives Information Provided: No Advance Directives on File: No DNR Order?:: No Past Medical History - Past Medical Illness Medical History: Past Medical History (Last Updated 04/21/18 @ 08:44 by Marjorie Crowder) Atherosclerotic heart disease of [place] coronary artery without angina pectoris (Chronic) I25.10 Synergy 4.0 X 38 mm to mid RCA per Dr. Woodson @ [facility] Shortness of breath (Chronic) R06.02 Tobacco abuse (Chronic) Z72.0 Psoriatic arthritis (Chronic) L40.50 History of TIA (transient ischemic attack) (Chronic) Z86.73 Hypertension (Chronic) I10 Hyperlipidemia (Chronic) E78.5 Chest pain (Acute) R07.9 - Past Surgical History Surgical History: Past Surgical History (Last Updated 04/21/18 @ 08:44 by Marjorie Crowder) Stented coronary artery (Chronic) Onset Date: 04/18/18 Z95.5 Synergy 4.0 X 38 mm to mid RCA per Dr. Woodson @ [facility] History of left heart catheterization (Chronic) Onset Date: ~1999 Z98.890 Done @ [facility]: Negative for CAD Surgical History: no surgical history - Family History Summary Family History: Family History (Last Reviewed 04/15/18 @ 12:52 by Marjorie Crowder) Father , age 55 Congestive heart failure Diabetes Hypertension Mother CAD (coronary artery disease) Diabetes Hypertension Social History - Smoking History Smoking Status: Current every day smoker Years Smokin Packs Smoked per Day: 0.5 Hx Tobacco Use: Yes Hx Smoking Exposure: Yes - Alcohol Use Alcohol Usage: Yes - socially - Substance Abuse Hx Substance Use: No - Occupation Occupation (List type of work in comments):: Employed Hours worked per day:: 8 Returned to work on:: 04/28/18 - Hobbies, Recreation, Social Activities Hobbies: Reading Recreational Activities: I am able to engage in all my recreational activities Social Environment - Status Marital Status: - Current Living Arrangements Living Environment:: Spouse - Children How many children do you have?: 3 Do any of your children live nearby?: Yes - Safety Do you feel safe in your surroundings?: Yes - Assistance Do you need any assistance at home?: none Review of Systems - Review of Systems Hints: Right click = Denies (Slash). Left click = Reports ([place]) Review of Present Symptoms: Reports: Shortness of Breath with Exertion, Fatigue , Sleep - Normal. Denies: Shortness of Breath at Rest, PVD, Operative Discomfort, Angina, Wound Healing, Dizziness/Lightheadedness, Heart Arrhythmia/ Irregularities, Appetite - Normal, Appetite - Special Diet, Sexual Changes - Pain Is Patient Pain Free?: Yes Risk Factor Assessment - Chief Complaint Chief Complaint: Z95.5 - Vital Signs Pulse Ox: 97 - Pulse Pulse Rate: 80 Pulse Rhythm: Regular - Hypertension Blood Pressure Sitting - Left Arm: 100/60 - Diabetes Nutrition Referral for Diabetes: No - Obesity Height: 1.55 m Weight:: 72.575 kg Weight in Pounds: 160.0 lbs Weight Source: Standing Scale Body Mass Index (BMI): 30.2 Nutritional Referral for Obesity: No - Physical Inactivity Physical Inactivity: Physically demanding job - Risk Stratification Risk Guidelines: Moderate Risk: Risk Factor for Diabetes, Risk Factor for Obesity, Risk Factor for Sedentary Lifestyle, Risk Factor for Depression, Highest Risk: Risk Factor for Smoking, Risk Factor for Dyslipidemia, Risk Factor for Hypertension - For Smoking Smoking Risk Guidelines: Smoking Low Risk: None or quit greater than 6 months ago. Smoking Moderate Risk: Smoker or quit 6 months or less ago. Smoking High Risk: Smoker - For Dyslipidemia Dyslipidemia Risk Guidelines: Low Risk: Moderate Risk: High Risk: 15-25% fat 25.1-29% fat >/= 30% fat. <7% sat fat 7-9% sat fat >9% sat fat. <150 mg chol 150-299 mg chol >/= 300 mg chol. LDL <100 LDL 100-129 LDL >/= 130. Chol/HDL ratio <5.0 Chol/HDL ratio 5.0-6.0 Chol/HDL ratio >6.0. Triglycerides <100 Triglycerides 100-149 Triglycerides >/= 150 - For Diabetes Mellitus Diabetes Risk Guidelines: Diabetes Low Risk: HgA1c <6.5% and/or FBG <120. Diabetes Moderate Risk: HgA1c 6.6-7.9% and/or FBG 120-180. Diabetes High Risk: HgA1c >/= 8% and/or FBG >180 - For Obesity/Overweight Obesity/Overweight Risk Guidelines: Obesity Low Risk: BMI <25.0. Obesity Moderate Risk: BMI 25-29.9. Obesity High Risk: BMI >/= 30.0 - For Hypertension Hypertension Risk Guidelines: Hypertension Low Risk: Systolic <120 and Diastolic <80. Hypertension Moderate Risk: Systolic 120-139 and Diastolic 80-89. Hypertension High Risk: Systolic >/= 140 and Diastolic >/= 90 - For Sedentary Lifestyle Sedentary Lifestyle Risk Guidelines: Sedentary Lifestyle Low Risk: >/= 1 ,500 kcal/week. Sedentary Lifestyle Moderate Risk: 700-1,499 kcal/week. Sedentary Lifestyle High Risk: < 700 kcal/week - For Depression Depression Risk Guidelines: Depression Low Risk: Not clinically depressed. Depression Moderate Risk: Mildly depressed. Depression High Risk: Clinically depressed - Family History Family History: Family History (Last Reviewed 04/15/18 @ 12:52 by Marjorie Crowder) Father Congestive heart failure Diabetes Hypertension Mother CAD (coronary artery disease) Diabetes Hypertension Motivation - Motivation to Participate On a scale of 1 to 10, how prepared are you to commit to attending program?: 10 What do you see as barriers to successfully being able to complete the program? : none What do you see as the benefits of succesfully completing the program? In other words, what do you hope to get out of participating in the program?: improved health Are there issues you are dealing with that will interfere with completing the program?: none Do you have a spouse or signficant other, family or friends who will help support you to complete the program?: yes
--- NOTE | 2018-04-24 10:45 | CR.ITP_ITS ---
General Information - General Information Admitting Diagnosis: Z95.5 coronary artery stenting - Education/Goals Barriers to Learning: None Cardiac Rehabilitation Goals: 1. Maintain the individual as the primary focus of care. 2. To improve the patient's quality of life. 3. Identification of cardiac risk factors and provide cardiac risk factor management. 4. Enhance the psychosocial status of the patient. 5. Reconditioning enough to allow the patient to resume customary activities. 6. Control symptoms of cardiac disease Scale for measuring improvement of personal goals: Enter appropriate number in Comments. 2 = Unchanged. 3 = Slightly Better. 4 = Moderate Improvement. 5 = Met my Goal Personal Goals: Initial Assessment: Quit smoking (participate in smoking cessation, Improve management of stress and emotions, Improve energy level, Participate in home exercise program, Get back to work, or to resume activities faster, Improve muscle strength and endurance, Improve diet and eating habits ( eat healthier), Control risk factors (learn risk factor modification) Exercise - Initial Assessment - Visit Date of Eval: 04/24/18 - initial eval - Stages of Change Stages of Change:: Contemplate - Exercise Prescription Mode:: Treadmill, Biodyne, Rower, Airdyne, NuStep, Arm Ergometer Angina with exercise?: No - Hypertension Do any of the following apply?: Yes Resting Blood Pressure:: 100/60 - Intervention Home Exercise/Activity Goal:: Sitting Time <3 hrs/day - Education Goals:: Warm-up, RPE RUDI Scale, S/S, Safe Exercise, Self-Monitoring - Exercise Program Goals Exercise Program Goals: Aerobic Activity >30 min, B/P <130/80 Nutrition - Initial Assessment - Program Goals Nutrition Program Goals: LDL <70. Total Cholesterol <200. HDL >45. Triglycerides <150. HgbA1C <7%. BMI <25 - Visit Date of Assessment:: 04/24/18 - Stages of Change Stages of Change:: Contemplate - Diabetes Diabetes:: No - Weight Management Height: 1.55 m Weight:: 72.575 kg Total Score:: 3 - Intervention Referral to dietitian:: No Referral to Diabetic Clinic:: No Will attend diet classes:: Yes - Education Gave educational materials for:: Signs & symptoms of hypoglycemia, Signs & symptoms of hyperglycemia, Relate diabetes to coronary artery disease, Healthy eating Tobacco - Initial Assessment - Program Goals Tobacco Program Goals: Complete smoking cessation. Attend education classes. Improve Knowledge Test score - Stage of Change Stages of Change:: Contemplate - Learning Barriers Total Score:: 15 - Family Support Do you have family support?: Yes - Tobacco Use Tobacco Use: Cigarettes Do you use smokeless tobacco?: No - Intervention Smoking Cessation Referral:: No Individual Education/Counseling:: No Education Schedule Given:: Yes - Education Gave educational material for:: Tobacco triggers, Coronary artery disease, Risk factors, Sexuality, Medical compliance, Cardiac A&P, Angina signs & symptoms Psychosocial - Initial Assess - Target Goals Target Goals: Assess presence or absence of depression. Using a valid screening tool, maximizes coping skills. Positive support system - Stages of Change Stages of Change:: Contemplate - Psychosocial Test Tool Used:: HANDS Depression Questionnaire Total Mood Screening Score:: 4 Self-Efficacy Score:: 9 - Intervention PS - Interventions: Yes Attend Stress Management Classes, Yes Uses Stress Management Skills, No Referral to Mental Health, No Referral to [facility] Case Management, No Referral to Physician - Education Gave educational materials for:: Coping techniques, Signs & symptoms of depression, Stress management, Relaxation techniques - Assistive Devices Assistive Devices:: None Fall Risk Assessed:: Yes Patient Health Questionnaire Initial Assessment 1. Little interest or pleasure in doing things: Several days 2. Feeling down, depressed, or hopeless: Several days 3. Trouble falling or staying asleep, or sleeping too much: Not at all 4. Feeling tired or having little energy: Several days 5. Poor appetite or overeating: Several days 6. Feeling bad about yourself -- or that you are a failure or have let yourself or your family down: Not at all 7. Trouble concentrating on things, such as reading the newspaper or watching television: Not at all 8. Moving or speaking so slowly that other people could have noticed. Or the opposite - being so fidgety or restless that you have been moving around a lot more than usual: Not at all 9. Thoughts that you would be better off , or of hurting yourself in some way: Not at all How difficult have these problems made it for you to do your work, take care of things at home, or get along with other people?: Not difficult at all Total Score: 4 ALAN-Q SV Test - Statements CAD is a disease of the arteries in the heart: True Examples of risk factors for heart disease: True Angina is chest pain or discomfort: True The benefits of resistance training include: I Don't Know Eating more meat and dairy products: False Anti-platelet medications such as aspirin are important: True The only effective way to manage stress: False An exercise warm-up slowly increases heart rate: I Don't Know Prepared, processed foods usually have high sodium: True Depression is common after a heart attack: I Don't Know The statin medications lower cholesterol: True To control blood pressure, lower the amount of sodium: True If someone gets chest discomfort during walking: False Transfats are partially hydrogenated vegetable oils: True Sleep apnea that is not treated increases the risk: False To control cholesterol, one should become a vegetarian: False Someone knows if he/she is exercising at the right level: True Diabetes cannot be prevented with exercise & health eating: False Stress is a large risk for heart attack: I Don't Know A diet that can help lower blood pressure is rich in: True - Total Score Total Correct Responses: 15 Self-Efficacy Initial Assessment We would like to know how confident you are in doing certain activities. Please select your confidence level for:: Select your confidence level for the following using the scale 1-10 where 1 is not at all confident and 10 is totally confident. Your score is the average of all 6 responses. Fatigue: How confident are you that you can keep the fatigue caused by your disease from interfering with the things you want to do? Select Number: 9 Physical Discomfort or Pain: How confident are you that you can keep the physical discomfort or pain of your disease from interfering with the things you want to do? Select Number: 9 Emotional Distress: How confident are you that you can keep the emotional distress caused by your disease from interfering with the things you want to do? Select Number: 9 Other Symptoms or Health Problems: How confident are you that you can keep other symptoms or health problems from interfering with the things you want to do? Select Number: 9 Different Tasks and Activities: How confident are you that you can do the different tasks and activities needed to manage your health condition so as to reduce your need to see a doctor? Select Number: 9 Medication: How confident are you that you can do things other than just taking medication to reduce how much your illness affects your everyday life? Select Number: 9 Total Score:: 9 Nutrition Survey - Nutrition Survey Instructions Scoring Instructions: Scoring is as follows: Yes = 1 points. No = 0 point. Patient score that is >/=12 is considered to be at potential nutritional risk and could benefit from a referral to a registered dietitian. - Nutrition Survey Initial Have you lost >10 lbs over the past 2 months without trying?: No Are you following a special diet at home for diabetes, low fat, or low salt?: Yes Are you interested in meeting with a dietitian for help understanding your diet? : No Do you eat less than 3 meals a day?: Yes Do you eat fatty meats (ragland, sausage, ribs, etc), fried foods, desserts, large amounts of salad dressings, margarine, butter, or cheese most days?: No Do you have food allergies? [Enter types in comment field]: Yes Do you eat in restaurants more than 3 times a week?: No Do you season food with salt, seasoning salt, or garlic salt?: No Do you used canned, boxed, frozen meals, or soups, seasoning packets?: No Total Score:: 3
[2018-04-24 11:38] VITALS: BP 100/60
[2018-04-24 11:39] VITALS: BP 100/60; PULSE 80; O2SAT 97; BMI 30.2
== END ==
PROVIDERS: Family Provider Family Medicine; PCP Family Medicine; Visit Provider Internal Medicine Cardiovascular Disease
DX: Z95.5 Presence of coronary angioplasty implant and graft (principal)

== ENCOUNTER → 2018-05-05 06:49 | Outpatient (CLI) | payer BC, SELFPAY ==
--- NOTE | 2018-05-05 16:43 | PFTCOMP_ITS ---
COMPLETE PULMONARY FUNCTION TEST INTERPRETATION Brief HPI: Patient is a 62 year old female, currently under the care of Dr. Woodson, who presents to [facility] for complete pulmonary function tests secondary to diagnosis of dyspnea. Respiratory therapist reports good effort and reproducible results. Interpretation: Forced expiration spirometry shows no large airways obstructive ventilatory defect with an FEV1 of 92% predicted. There is no significant bronchodilator response by ATS criteria. Spirograms are of good quality and plateau normally. The respiratory flow volume loop shows a normal pattern. Lung volumes by body plethysmography show a normal total lung capacity at 4.13 L , 96% predicted. All other lung volumes are within normal limits. Diffusion capacity by carbon monoxide is normal at 71% predicted. The airway resistance is normal. No previous pulmonary function tests were available for review. Impression: These pulmonary function tests are within normal limits.
== END ==
PROVIDERS: Family Provider Family Medicine; PCP Family Medicine; Visit Provider Internal Medicine Cardiovascular Disease
DX: R06.02 Shortness of breath (principal); Z72.0 Tobacco use
CPT/HCPCS: 94060; 94726; 94729

== ENCOUNTER 2018-05-09 14:15 | Outpatient (RCR) | payer BC, SELFPAY | END 2018-05-11 23:59 | LOC: CR 14:15 | PROVIDERS: Family Provider Family Medicine; PCP Family Medicine; Visit Provider Internal Medicine Cardiovascular Disease | DX: Z95.5 Presence of coronary angioplasty implant and graft (principal); I25.10 Atherosclerotic heart disease of native coronary artery without angina pectoris | CPT/HCPCS: 93798 ==

== ENCOUNTER 2018-06-11 14:15 | Outpatient (RCR) | payer BC, SELFPAY ==
--- NOTE | 2018-05-23 11:15 | PCM.CR.ITP ---
General Information - General Information Admitting Diagnosis: Z95.5 coronary artery stenting - Education/Goals Cardiac Rehabilitation Goals: 1. Maintain the individual as the primary focus of care. 2. To improve the patient's quality of life. 3. Identification of cardiac risk factors and provide cardiac risk factor management. 4. Enhance the psychosocial status of the patient. 5. Reconditioning enough to allow the patient to resume customary activities. 6. Control symptoms of cardiac disease Scale for measuring improvement of personal goals: Enter appropriate number in Comments. 2 = Unchanged. 3 = Slightly Better. 4 = Moderate Improvement. 5 = Met my Goal Exercise - 30-day Assessment - Visit Date of Eval: 05/23/18 Session #:: 7 - Stages of Change Stages of Change:: Action - Exercise Prescription Mode:: Treadmill, Airdyne, NuStep Frequency (x/week): 3 Duration:: 30 METs - Progression: 0.5-1 MET as tolerated: 2.5 Target Heart Rate:: 110-118 Max HR 110 - Hypertension Resting Blood Pressure:: 140/76 Peak Exercise Blood Pressure:: 162/74 - Intervention Home Exercise/Activity Goal:: Sitting Time <3 hrs/day - Education Goals:: Warm-up, RPE RUDI Scale, S/S, Safe Exercise, Self-Monitoring - Exercise Program Goals Exercise Program Goals: Aerobic Activity >30 min, B/P <130/80 Nutrition - 30-Day Assessment - Program Goals Nutrition Program Goals: LDL <70. Total Cholesterol <200. HDL >45. Triglycerides <150. HgbA1C <7%. BMI <25 - Visit Date of Eval: 05/23/18 - Stages of Change Stages of Change:: Action - Diabetes Diabetes:: No - Weight Management Weight:: 73.709 kg - Intervention Referral to dietitian:: No Referral to Diabetic Clinic:: No Will attend diet classes:: Yes - Education Attended class for:: Signs & symptoms of hypoglycemia, Signs & symptoms of hyperglycemia, Relate diabetes to coronary artery disease, Healthy eating Tobacco - 30-Day Assessment - Program Goals Tobacco Program Goals: Complete smoking cessation. Attend education classes. Improve Knowledge Test score - Stage of Change Stages of Change:: Action - Learning Barriers Learning Barriers: Participates in education - Family Support Do you have family support?: Yes - Tobacco Use Tobacco Use: Non-smoker Do you use smokeless tobacco?: No - Intervention Smoking Cessation Referral:: No Individual Education/Counseling:: No Education Schedule Given:: Yes - Education Attended class for:: Tobacco triggers, Coronary artery disease, Risk factors, Sexuality, Medical compliance, Cardiac A&P, Angina signs & symptoms Psychosocial - Initial Assess - Target Goals Target Goals: Assess presence or absence of depression. Using a valid screening tool, maximizes coping skills. Positive support system - Psychosocial Test Tool Used:: HANDS Depression Questionnaire - Assistive Devices Fall Risk Assessed:: Yes Psychosocial - 30-Day Assess - Target Goals Target Goals: Assess presence or absence of depression. Using a valid screening tool, maximizes coping skills. Positive support system - Stages of Change Stages of Change:: Action - Psychosocial Test Tool Used:: HANDS Depression Questionnaire - Intervention PS - Interventions: Yes Attend Stress Management Classes, Yes Uses Stress Management Skills, No Referral to Mental Health, No Referral to [facility] Case Management, No Referral to Physician - Education Attended classes for:: Coping techniques, Signs & symptoms of depression, Stress management, Relaxation techniques - Assistive Devices Assistive Devices:: None Fall Risk Assessed:: Yes Patient Health Questionnaire 30-Day Re-eval Assessment 1. Little interest or pleasure in doing things: Several days 2. Feeling down, depressed, or hopeless: Several days 3. Trouble falling or staying asleep, or sleeping too much: Not at all 4. Feeling tired or having little energy: Several days 5. Poor appetite or overeating: Several days 6. Feeling bad about yourself -- or that you are a failure or have let yourself or your family down: Not at all 7. Trouble concentrating on things, such as reading the newspaper or watching television: Not at all 8. Moving or speaking so slowly that other people could have noticed. Or the opposite - being so fidgety or restless that you have been moving around a lot more than usual: Not at all 9. Thoughts that you would be better off , or of hurting yourself in some way: Not at all How difficult have these problems made it for you to do your work, take care of things at home, or get along with other people?: Not difficult at all Total Score: 4 Self-Efficacy 30-Day Re-eval Assessment We would like to know how confident you are in doing certain activities. Please select your confidence level for:: Select your confidence level for the following using the scale 1-10 where 1 is not at all confident and 10 is totally confident. Your score is the average of all 6 responses. Fatigue: How confident are you that you can keep the fatigue caused by your disease from interfering with the things you want to do? Select Number: 9 Physical Discomfort or Pain: How confident are you that you can keep the physical discomfort or pain of your disease from interfering with the things you want to do? Select Number: 9 Emotional Distress: How confident are you that you can keep the emotional distress caused by your disease from interfering with the things you want to do? Select Number: 9 Other Symptoms or Health Problems: How confident are you that you can keep other symptoms or health problems from interfering with the things you want to do? Select Number: 9 Different Tasks and Activities: How confident are you that you can do the different tasks and activities needed to manage your health condition so as to reduce your need to see a doctor? Select Number: 9 Medication: How confident are you that you can do things other than just taking medication to reduce how much your illness affects your everyday life? Select Number: 9 Total Score:: 9
[2018-05-23 11:21] VITALS: BP 140/76; BP 162/74
== END 2018-06-11 23:59 ==
LOC: CR 14:15
PROVIDERS: Family Provider Family Medicine; PCP Family Medicine; Referring Provider Internal Medicine Cardiovascular Disease; Visit Provider Internal Medicine Cardiovascular Disease
DX: Z95.5 Presence of coronary angioplasty implant and graft (principal); I25.10 Atherosclerotic heart disease of native coronary artery without angina pectoris
CPT/HCPCS: 93798

== ENCOUNTER 2018-07-11 14:15 | Outpatient (RCR) | payer BC, SELFPAY ==
[2018-06-12 01:37] VITALS: BP 140/76; BP 162/74
--- NOTE | 2018-06-20 10:15 | PCM.CR.ITP ---
Exercise - 60-Day Assessment - Visit Date of Eval: 06/20/18 Session #:: 21 - Stages of Change Stages of Change:: Action - Exercise Prescription Mode:: Treadmill, Rower, Airdyne, NuStep Frequency (x/week): 3 Duration:: 35 METs: 5 Target Heart Rate:: 118-126 w max HR 109 - Hypertension Resting Blood Pressure:: 118/64 Peak Exercise Blood Pressure:: 140/68 Medication Changes:: No - Intervention Home Exercise/Activity Goal:: Moderate Exercise 30 min/day x 5 days/wk - Education Goals:: Warm-up, RPE RUDI Scale, S/S, Safe Exercise, Self-Monitoring - Exercise Program Goals Exercise Program Goals: Aerobic Activity >30 min Nutrition - 60-Day Assessment - Program Goals Nutrition Program Goals: LDL <70. Total Cholesterol <200. HDL >45. Triglycerides <150. HgbA1C <7%. BMI <25 - Visit Date of Eval: 06/20/18 - Stages of Change Stages of Change:: Action - Lipids Has the patient seen the dietitian?: No - Diabetes Diabetes:: No - Intervention Referral to dietitian:: No Referral to Diabetic Clinic:: No Will attend diet classes:: Yes - Education Attended class for:: Healthy eating Tobacco - 60-Day Assessment - Program Goals Tobacco Program Goals: Complete smoking cessation. Attend education classes. Improve Knowledge Test score - Stage of Change Stages of Change:: Action - Learning Barriers Learning Barriers: Participates in education - Tobacco Use Tobacco Use: Non-smoker Do you use smokeless tobacco?: No - Intervention Education Schedule Given:: Yes - Education Attended class for:: Coronary artery disease, Risk factors, Sexuality, Medical compliance, Cardiac A&P, Angina signs & symptoms Psychosocial - Initial Assess - Target Goals Target Goals: Assess presence or absence of depression. Using a valid screening tool, maximizes coping skills. Positive support system - Psychosocial Test Tool Used:: HANDS Depression Questionnaire - Assistive Devices Fall Risk Assessed:: Yes Psychosocial - 60-Day Assess - Target Goals Target Goals: Assess presence or absence of depression. Using a valid screening tool, maximizes coping skills. Positive support system - Stages of Change Stages of Change:: Action - Psychosocial Test Tool Used:: HANDS Depression Questionnaire - Intervention PS - Interventions: Yes Attend Stress Management Classes, Yes Uses Stress Management Skills, No Referral to Mental Health, No Referral to [facility] Case Management, No Referral to Physician - Education Attended classes for:: Coping techniques, Signs & symptoms of depression, Stress management, Relaxation techniques - Patient/Program Goal Preventative Medication(s):: Aspirin, Clopidogrel, Beta lori, Statin/lipid - Assistive Devices Assistive Devices:: None Fall Risk Assessed:: Yes Patient Health Questionnaire 60-Day Re-eval Assessment 1. Little interest or pleasure in doing things: Not at all 2. Feeling down, depressed, or hopeless: Not at all 3. Trouble falling or staying asleep, or sleeping too much: Not at all 4. Feeling tired or having little energy: Not at all 5. Poor appetite or overeating: Not at all 6. Feeling bad about yourself -- or that you are a failure or have let yourself or your family down: Not at all 7. Trouble concentrating on things, such as reading the newspaper or watching television: Not at all 8. Moving or speaking so slowly that other people could have noticed. Or the opposite - being so fidgety or restless that you have been moving around a lot more than usual: Not at all 9. Thoughts that you would be better off , or of hurting yourself in some way: Not at all Total Score: 0 Self-Efficacy 60-Day Re-eval Assessment We would like to know how confident you are in doing certain activities. Please select your confidence level for:: Select your confidence level for the following using the scale 1-10 where 1 is not at all confident and 10 is totally confident. Your score is the average of all 6 responses. Fatigue: How confident are you that you can keep the fatigue caused by your disease from interfering with the things you want to do? Select Number: 10 Physical Discomfort or Pain: How confident are you that you can keep the physical discomfort or pain of your disease from interfering with the things you want to do? Select Number: 10 Emotional Distress: How confident are you that you can keep the emotional distress caused by your disease from interfering with the things you want to do? Select Number: 10 Other Symptoms or Health Problems: How confident are you that you can keep other symptoms or health problems from interfering with the things you want to do? Select Number: 10 Different Tasks and Activities: How confident are you that you can do the different tasks and activities needed to manage your health condition so as to reduce your need to see a doctor? Select Number: 10 Medication: How confident are you that you can do things other than just taking medication to reduce how much your illness affects your everyday life? Select Number: 10 Total Score:: 10
[2018-06-20 10:18] VITALS: BP 118/64; BP 140/68
== END 2018-07-11 23:59 ==
LOC: CR 14:15
PROVIDERS: Family Provider Family Medicine; PCP Family Medicine; Referring Provider Internal Medicine Cardiovascular Disease; Visit Provider Internal Medicine Cardiovascular Disease
DX: Z95.5 Presence of coronary angioplasty implant and graft (principal); I25.10 Atherosclerotic heart disease of native coronary artery without angina pectoris
CPT/HCPCS: 93798

== ENCOUNTER 2018-07-18 14:15 | Outpatient (RCR) | payer BC, SELFPAY ==
[2018-05-16 10:06] VITALS: BMI 30.4
[2018-07-12 01:19] VITALS: BP 118/64; BP 140/68
--- NOTE | 2018-07-21 10:01 | PCM.CR.ITP ---
General Information - General Information Admitting Diagnosis: coronary artery stenting - Education/Goals Cardiac Rehabilitation Goals: 1. Maintain the individual as the primary focus of care. 2. To improve the patient's quality of life. 3. Identification of cardiac risk factors and provide cardiac risk factor management. 4. Enhance the psychosocial status of the patient. 5. Reconditioning enough to allow the patient to resume customary activities. 6. Control symptoms of cardiac disease Scale for measuring improvement of personal goals: Enter appropriate number in Comments. 2 = Unchanged. 3 = Slightly Better. 4 = Moderate Improvement. 5 = Met my Goal Exercise - 90-Day Assessment - Visit Date of Eval: 07/21/18 - ITP delayed due to technical issues - Stages of Change Stages of Change:: Action - Exercise Prescription Mode:: Rower, Airdyne, NuStep Frequency (x/week): 3 Duration:: 35 METs: 5.5 Target Heart Rate:: 118-126 Max HR 136 - Hypertension Resting Blood Pressure:: 122/48 Peak Exercise Blood Pressure:: 154/58 - Intervention Home Exercise/Activity Goal:: Sitting Time <3 hrs/day - Education Goals:: Warm-up, RPE RUDI Scale, S/S, Safe Exercise, Self-Monitoring - Exercise Program Goals Exercise Program Goals: Aerobic Activity >30 min, B/P <130/80 Nutrition - 90-Day Assessment - Program Goals Nutrition Program Goals: LDL <70. Total Cholesterol <200. HDL >45. Triglycerides <150. HgbA1C <7%. BMI <25 - Visit Date of Eval: 07/21/18 - Stages of Change Stages of Change:: Action - Weight Management Weight:: 72.121 kg - Intervention Referral to dietitian:: No Referral to Diabetic Clinic:: No Will attend diet classes:: Yes - Education Attended class for:: Signs & symptoms of hypoglycemia, Signs & symptoms of hyperglycemia, Relate diabetes to coronary artery disease, Healthy eating Tobacco - 90-Day Assessment - Program Goals Tobacco Program Goals: Complete smoking cessation. Attend education classes. Improve Knowledge Test score - Stage of Change Stages of Change:: Action - Learning Barriers Learning Barriers: Participates in education - Family Support Do you have family support?: Yes - Tobacco Use Tobacco Use: Non-smoker - Intervention Smoking Cessation Referral:: No Individual Education/Counseling:: No Education Schedule Given:: Yes - Education Attended class for:: Tobacco triggers, Coronary artery disease, Risk factors, Sexuality, Medical compliance, Cardiac A&P, Angina signs & symptoms Psychosocial - 90-Day Assess - Target Goals Target Goals: Assess presence or absence of depression. Using a valid screening tool, maximizes coping skills. Positive support system - Stages of Change Stages of Change:: Action - Psychosocial Test Tool Used:: HANDS Depression Questionnaire - Intervention PS - Interventions: Yes Attend Stress Management Classes, Yes Uses Stress Management Skills, No Referral to Mental Health, No Referral to [facility] Case Management, No Referral to Physician - Education Attended classes for:: Coping techniques, Signs & symptoms of depression, Stress management, Relaxation techniques - Assistive Devices Assistive Devices:: None Fall Risk Assessed:: Yes Patient Health Questionnaire 90-Day Re-eval Assessment 1. Little interest or pleasure in doing things: Not at all 2. Feeling down, depressed, or hopeless: Not at all 3. Trouble falling or staying asleep, or sleeping too much: Not at all 4. Feeling tired or having little energy: Not at all 5. Poor appetite or overeating: Not at all 6. Feeling bad about yourself -- or that you are a failure or have let yourself or your family down: Not at all 7. Trouble concentrating on things, such as reading the newspaper or watching television: Not at all 8. Moving or speaking so slowly that other people could have noticed. Or the opposite - being so fidgety or restless that you have been moving around a lot more than usual: Not at all 9. Thoughts that you would be better off , or of hurting yourself in some way: Not at all How difficult have these problems made it for you to do your work, take care of things at home, or get along with other people?: Not difficult at all Total Score: 0 Self-Efficacy 90-Day Re-eval Assessment We would like to know how confident you are in doing certain activities. Please select your confidence level for:: Select your confidence level for the following using the scale 1-10 where 1 is not at all confident and 10 is totally confident. Your score is the average of all 6 responses. Fatigue: How confident are you that you can keep the fatigue caused by your disease from interfering with the things you want to do? Select Number: 10 Physical Discomfort or Pain: How confident are you that you can keep the physical discomfort or pain of your disease from interfering with the things you want to do? Select Number: 10 Emotional Distress: How confident are you that you can keep the emotional distress caused by your disease from interfering with the things you want to do? Select Number: 10 Other Symptoms or Health Problems: How confident are you that you can keep other symptoms or health problems from interfering with the things you want to do? Select Number: 10 Different Tasks and Activities: How confident are you that you can do the different tasks and activities needed to manage your health condition so as to reduce your need to see a doctor? Select Number: 10 Medication: How confident are you that you can do things other than just taking medication to reduce how much your illness affects your everyday life? Select Number: 10 Total Score:: 10
[2018-07-21 10:07] VITALS: BP 122/48; BP 154/58
== END 2018-08-11 23:59 ==
LOC: CR 14:15
PROVIDERS: Family Provider Family Medicine; PCP Family Medicine; Referring Provider Internal Medicine Cardiovascular Disease; Visit Provider Internal Medicine Cardiovascular Disease
DX: Z95.5 Presence of coronary angioplasty implant and graft (principal); I25.10 Atherosclerotic heart disease of native coronary artery without angina pectoris
CPT/HCPCS: 93798

== ENCOUNTER → 2019-06-27 | Outpatient (CLI) | payer BC, SELFPAY ==
[2019-06-22 14:41] VITALS: BMI 27.9
[2019-06-27 09:29] LABS: AST(SGOT) 20 U/L (15-37); Alanine Aminotransfer ALT/SGPT 23 U/L (13-56); Albumin, Serum 3.7 g/dL (3.2-5.0); Alkaline Phosphatase 87 U/L (45-117); Bilirubin, Direct 0.16 mg/dL (0.00-0.30); Cholesterol 178 mg/dL (200); Globulin 4.2 g/dL (2.2-4.2); High Density Lipoprotein 46 mg/dL; Protein, Total 7.9 g/dL (6.4-8.2); Triglycerides 80 mg/dL; Very Low Density Lipoprotein 16 mg/dL (5-40)
== END | disposition home or self-care (01) ==
LOC: LAB 08:15
PROVIDERS: Family Provider Family Medicine; PCP Family Medicine; Referring Provider Internal Medicine Cardiovascular Disease; Visit Provider Internal Medicine Cardiovascular Disease
DX: E78.5 Hyperlipidemia, unspecified (principal); I25.10 Atherosclerotic heart disease of native coronary artery without angina pectoris; Z95.5 Presence of coronary angioplasty implant and graft
CPT/HCPCS: 36415; 80061; 80076

== ENCOUNTER → 2020-06-20 08:11 | Outpatient (CLI) | payer BC, SELFPAY ==
[2020-02-04 14:33] VITALS: BMI 27.9
[2020-06-20 09:46] LABS: AST(SGOT) 25 U/L (15-37); Alanine Aminotransfer ALT/SGPT 25 U/L (13-56); Albumin, Serum 3.6 g/dL (3.2-5.0); Alkaline Phosphatase 83 U/L (45-117); Bilirubin, Direct 0.09 mg/dL (0.00-0.30); Cholesterol 167 mg/dL (200); Globulin 4.3 g/dL (2.2-4.2); High Density Lipoprotein 42 mg/dL; Protein, Total 7.9 g/dL (6.4-8.2); Triglycerides 146 mg/dL; Very Low Density Lipoprotein 29 mg/dL (5-40)
== END ==
PROVIDERS: Internal Medicine Cardiovascular Disease; PCP Family Medicine; Referring Provider Internal Medicine Cardiovascular Disease; Visit Provider Internal Medicine Cardiovascular Disease
DX: E78.5 Hyperlipidemia, unspecified (principal)
CPT/HCPCS: 36415; 80061; 80076

== ENCOUNTER → 2020-07-13 06:56 | Outpatient (REF) | payer BC, SELFPAY ==
[2020-06-23 15:51] VITALS: BMI 29.3
== END ==
LOC: LABSPEC 06:56
PROVIDERS: PCP Family Medicine; Referring Provider Family Medicine; Visit Provider Family Medicine
DX: Z03.818 Encounter for observation for suspected exposure to other biological agents ruled out (principal)
CPT/HCPCS: 87635; U0003

== ENCOUNTER → 2020-12-01 | Outpatient (CLI) | payer BC, SELFPAY ==
[2020-12-01 10:20] VITALS: BMI 28.9
== END | disposition home or self-care (01) ==
PROVIDERS: Visit Provider Nurse Practitioner Adult Health
DX: N39.0 Urinary tract infection, site not specified (principal); R30.0 Dysuria; R31.9 Hematuria, unspecified; R10.32 Left lower quadrant pain
CPT/HCPCS: 87086; 87088

== ENCOUNTER → 2023-03-27 | Outpatient (CLI) | payer MEDICARE, OTHER, SELFPAY ==
--- NOTE | 2023-04-01 17:16 | STRESSREP ---
Stress Test Report Date: 03/27/2023 Procedure: Exercise tolerance test/imaging study Indications: Coronary artery disease Consent: Per the patient Procedure: The patient exercised on a Amrit protocol for 7 minutes and 29 seconds achieving a peak heart rate of 151 bpm (98% predicted maximal heart rate) with a peak blood pressure 148/60 mmHg and a peak MET capacity of 10.1 METs. The baseline ECG demonstrated normal sinus rhythm. The peak exercise ECG demonstrated no ischemic changes. There were no cardiac dysrhythmias pretest, during exercise, or recovery. The functional capacity was considered good. There was no complaint of chest discomfort during exercise or recovery. The examination was discontinued secondary to target heart rate being achieved. The patient was injected with 11.1 mCi of technetium 99m Cardiolite and subsequently rest SPECT Cardiolite nuclear imaging was obtained in the horizontal long, vertical long, and short axis views. Post-exercise, the patient was injected with 33.7 mCi of technetium 99m Cardiolite and subsequently stress SPECT Cardiolite nuclear imaging was obtained in the horizontal long, vertical long, and short axis views. A gated Cardiolite study at peak stress was obtained. Rest and stress SPECT Cardiolite nuclear imaging status post realignment, normalization, and attenuation correction, demonstrates the appearance of relative uniform tracer uptake and myocardial perfusion appearing within normal limits. There is end systolic thickening and brightening. The gated Cardiolite study demonstrates myocardial thickening and inward wall motion. The reported LVEF is 86%. Impression: 1. Technically adequate (percent predicted maximal heart rate greater than 85%) exercise tolerance test 2. Peak exercise ECG with no ischemic changes 3. There were no cardiac dysrhythmias pretest, during exercise, or recovery 4. Rest and stress SPECT Cardiolite nuclear imaging demonstrate relative uniform tracer uptake and myocardial perfusion appearing within normal limits. 5. The gated Cardiolite study reports an LVEF of 86%. This note was generated with [employer] software. It may contain incorrect words, spelling, and punctuation that were not noted in checking the note before signing.
== END | disposition home or self-care (01) ==
PROVIDERS: PCP Family Medicine; Referring Provider Nurse Practitioner Gerontology; Visit Provider Nurse Practitioner Gerontology
DX: I25.10 Atherosclerotic heart disease of native coronary artery without angina pectoris (principal); Z95.5 Presence of coronary angioplasty implant and graft
CPT/HCPCS: 78452; 93017; A9500; A4216

== ENCOUNTER → 2023-11-18 | Outpatient (CLI) | payer MEDICARE, OTHER, SELFPAY ==
--- NOTE | 2023-11-18 13:50 | ECHOD_ITS ---
Reason For Study: CHEST PAIN Procedure This was a 2D Doppler, Color Flow transthoracic echocardiogram. Exam performed in department. Left Ventricle Normal size and thickness. The left ventricular ejection fraction is 65 %. No evidence for diastolic dysfunction. Right Ventricle Normal right ventricle. Atria The left and right atria are normal. Aneurysmal atrial septum. Mitral Valve Trivial mitral valve insufficiency. Tricuspid Valve Trivial tricuspid valve insufficiency. Normal pulmonary artery pressure. Aortic Valve Aortic sclerosis, no stenosis. Pulmonic Valve The pulmonic valve is not well visualized. Great Vessels Normal sized aortic root. Pericardium/Pleural No pericardial effusion. MMode/2D Measurements & Calculations LVIDd: 3.4 cm IVSd: 0.99 cm LVOT diam: 1.9 cm LVIDs: 1.7 cm LVPWd: 0.91 cm LVOT area: 2.8 cm2 RVDd: 3.0 cm FS: 48.7 % Ao root diam: 2.7 cm LAV(MOD-bp): 26.0 ml LVAd ap4: 19.6 cm2 LAV(MOD-bp) Indexed: 16.5 ml/m2 LVLd ap4: 6.7 cm LAV(MOD-sp2): 27.3 ml EDV(MOD-sp4): 47.7 ml LAV(MOD-sp4): 24.2 ml EDV(sp4-el): 49.2 ml LVAs ap4: 10.4 cm2 LVLs ap4: 5.6 cm ESV(MOD-sp4): 16.5 ml ESV(sp4-el): 16.4 ml EF(MOD-sp4): 65.4 % EF(sp4-el): 66.6 % LVAd ap2: 24.4 cm2 SV(MOD-sp4): 31.2 ml SV(MOD-sp2): 47.1 ml LVLd ap2: 7.1 cm EDV(MOD-sp2): 69.3 ml EDV(sp2-el): 71.0 ml LVAs ap2: 12.1 cm2 LVLs ap2: 5.6 cm ESV(MOD-sp2): 22.2 ml ESV(sp2-el): 22.1 ml EF(MOD-sp2): 67.9 % SV(sp4-el): 32.8 ml LA dimension(2D): 3.3 cm LA A4 area: 11.8 cm2 RA A4 area: 7.2 cm2 TAPSE: 1.8 cm Time Measurements MV dec time: 0.28 sec Doppler Measurements & Calculations MV E max anant: 73.4 cm/sec Lat Peak E' Anant: 11.9 cm/sec Med Peak E' Anant: 10.4 cm/sec MV A max anant: 96.2 cm/sec E/E' lat: 6.2 E/E' med: 7.1 MV E/A: 0.76 Ao V2 max: 158.2 cm/sec LV V1 max: 117.5 cm/sec MV dec slope: 266.9 cm/sec2 Ao max P.0 mmHg LV V1 max P.5 mmHg Ao V2 mean: 108.8 cm/sec LV V1 mean P.8 mmHg Ao mean P.3 mmHg LV V1 mean: 77.6 cm/sec Ao V2 VTI: 29.5 cm LV V1 VTI: 21.9 cm AV (velocity ratio): 0.74 LUIGI(I,D): 2.1 cm2 LUIGI(V,D): 2.1 cm2 SV(LVOT): 60.6 ml PA V2 max: 95.9 cm/sec TR max anant: 166.4 cm/sec PA max PG (full): 1.4 mmHg TR max P.1 mmHg ECHO/Echo Complete Interpretation Summary The left ventricular ejection fraction is 65 %. Aneurysmal atrial septum. Ordering Physician: Jethro Azar Referring Physician: Mariposa Corea Performed By: Christina Quezada RDCS
== END | disposition home or self-care (01) ==
LOC: CVS 13:49
PROVIDERS: PCP Family Medicine; Visit Provider Internal Medicine Cardiovascular Disease
DX: R07.9 Chest pain, unspecified (principal); I25.10 Atherosclerotic heart disease of native coronary artery without angina pectoris; E78.5 Hyperlipidemia, unspecified; I10 Essential (primary) hypertension; R06.02 Shortness of breath
CPT/HCPCS: 93306

== ENCOUNTER 2024-02-17 12:40 | Emergency (ER) | payer MEDICARE, OTHER, SELFPAY ==
[2024-02-17 12:42] VITALS: BP 127/62; PULSE 83; RESP 16; TEMP 36.1; O2SAT 99; BMI 24.5
--- NOTE | 2024-02-17 14:07 | EDS_ITS ---
HPI History of Present Illness Chief Complaint: Lower Extremity Injury [facility] Medical History (Updated 10/07/23 @ 14:[address] Jethro Azar MD) Preop cardiovascular exam Presence of stent in coronary artery (~04/18/18) Essential hypertension Atherosclerotic heart disease of [place] coronary artery without angina pectoris Shortness of breath Tobacco abuse Psoriatic arthritis History of TIA (transient ischemic attack) Hyperlipidemia Chest pain Home Medications ?Medication ?Instructions ?Recorded ?Last Taken ?Type aspirin 81 mg chewable tablet 81 mg PO DAILY heart health 02/01/15 04/18/18 History gabapentin 100 mg capsule 100 mg PO QHS 06/22/19 Unknown History nitroglycerin 0.4 mg sublingual 0.4 mg sublingual PRN PRN 02/01/22 Unknown Rx tablet Cardiac/Chest Pain #25 tabs gemfibrozil 600 mg tablet 600 mg PO BID #180 tabs 12/24/22 Unknown Rx cholecalciferol (vitamin D3) 25 25 mcg PO DAILY 03/05/23 Unknown History mcg (1,000 unit) capsule ferrous sulfate 325 mg (65 mg 325 mg PO DAILY 10/07/23 Unknown History iron) tablet (FeroSul) mecobalamin (vitamin B12) 1,000 1,000 mcg PO DAILY 10/07/23 Unknown History mcg chewable tablet lisinopril 20 mg tablet 20 mg PO DAILY #90 tabs 11/04/23 Unknown Rx metoprolol tartrate 50 mg tablet 25 mg (1/2 x 50 mg) PO BID #180 01/30/24 Unknown Rx tabs Allergy/AdvReac Type Severity Reaction Status Date / Time codeine (From Allergy Severe Hives Verified 02/17/24 12:43 Tylenol-Codeine) acetaminophen (From Allergy Hives Verified 02/17/24 12:43 Darvocet-N 100) Penicillins (PCN) Allergy Hives Verified 02/17/24 12:43 propoxyphene napsylate (From Allergy Hives Verified 02/17/24 12:43 Darvocet-N 100) Mdfgeej-Nvl-Ycg Reductase AdvReac Severe myalgias Verified 02/17/24 12:43 Inhibitor Family History Father , age 55 Congestive heart failure Diabetes Hypertension Mother CAD (coronary artery disease) Diabetes Hypertension Surgical History History of shoulder surgery (09/2021) History of colonoscopy (07/21/21) Presence of coronary angioplasty implant and graft History of left heart catheterization (~1999) Social History Smoking Status: Light Smoker (<10/day) alcohol intake: current alcohol intake frequency: a few times a month substance use type: does not use caffeine: Yes Type: coffee Number of servings: 2 EXAM Physical Exam Const Vital Signs: 02/17/24 12:42 Temperature 96.9 F L Temperature Source Temporal Pulse Rate 83 Respiratory Rate 16 Blood Pressure 127/62 H Blood Pressure Mean 83 Pulse Ox 99 Oxygen Delivery Method Room Air MDM MDM MDM Narrative Medical decision making narrative: HISTORY OF PRESENT ILLNESS: 68-year-old female presents with right knee pain. She notes right knee injury. This occurred yesterday. She further states she had her 75 pound dog on a leash. The dog saw a stray animal and lunged forward. This forced her to take a large step down 4 stairs and landed on her right foot causing pain to her right knee. She denies any twisting or other trauma. REVIEW OF SYSTEMS: Pertinent positives: Knee pain Pertinent negatives: Lower extremity edema, discoloration, cool to touch, numbness tingling or loss sensation, calf tenderness PHYSICAL EXAM: Nursing triage notes reviewed, Vital signs reviewed Constitutional: please see mdm HENT: MMM Eyes: Pupils equal round and reactive to light, Extraocular muscles intact Neck: No stridor, no JVD, full neck ROM Lungs: Clear to auscultation, No wheezing or rales. No increased work of breathing, no conversational dyspnea, no accessory muscle use, no nasal flaring. No respiratory distress noted Heart: Regular rate and rhythm, No murmurs, No rubs and No gallops, 2+ distal pulses (radial, femoral, posterior tibial) in all extremities Abdomen: Soft, there is no tenderness, rigidity, rebound or guarding, no obvious peritoneal signs, no palpable pulsatile abdominal masses, no auscultated abdominal bruit : No CVAT Extremities: No edema Neuro: Intact sensation L1-S1 dermatomal distributions. Intact 5/5 strength in hip flexion (T12-L3). Knee extension (L2-L4). Ankle dorsiflexion (L4-L5). Ankle plantar flexion (S1). Great toe extension (L5). 2+ patellar and Achilles DTRs. Skin: No rash or lesions noted MEDICAL DECISION MAKING: Chief Complaint: Knee pain External records reviewed: Imaging reviewed: No recent advanced imaging of the involved extremity Factors affecting care: CAD, hyperlipidemia, hypertension, psoriatic arthritis Social determinants of health: none History obtained from others: The patient's Consults: none MDM Narrative: Patient was hemodynamically stable, afebrile nontoxic-appearing. Exam without evidence of quadriceps tendon rupture, no warmth, no edema, no effusion. Compartments are soft. No calf tenderness. Intact pulses. I considered the following differential diagnosis: Knee fracture, dislocation, quadriceps tendonrupture, septic arthritis, DVT, arterial occlusion, compartment There is no clinical evidence to suggest septic arthritis, quadriceps tendon rupture, DVT, arterial occlusion or compartment syndrome. I obtained an x-ray to rule out any fracture or dislocation. ALL IMAGES (IF OBTAINED) HAVE BEEN PERSONALLY REVIEWED AND INTERPRETED BY MYSELF. X-ray of the right knee was read reviewed by myself, Showed no evidence of acute fracture or dislocation. Radiologist agrees my interpretation. Strict return precautions were discussed. Outpatient orthopedic follow-up was discussed The patient and/or family, caregivers express understanding. The patient and/or family, caregivers agrees with the plan. Shared decision making: I will have a discussion with the patient and or visitors regarding risk/benefits of further testing or admission. They will be made aware of of the risk/benefits inherent in this decision they will be given the opportunity to voice understanding. Total critical care time today provided was at least 0 minutes. This excludes separately billable procedures. Critical care time (if documented) is secondary to the patient having high probability of clinically significant/life threatening deterioration in the patient's condition which required my urgent intervention. Impression: 1 Right knee pain 2. Right knee sprain Dispo: Discharge home This note was generated with [employer] dictation software. It may contain incorrect words, spelling, and punctuation that were not noted in review of the chart prior to signing. Radiography Diagnostic Testing: Clinical Impression(s) from Imaging Studies Knee X-Ray 02/17/24 14:27 IMPRESSION: Normal x-ray examination of the knee. Electronically Signed: Trevor Barrientos MD at 14:39 EDT , Discharge Plan Triage Chief Complaint: Lower Extremity Injury ED Provider: Sahil Navarrete Dx/Rx/DC Orders Instructions: ED Knee Sprain Prescriptions: No Action gabapentin 100 mg capsule 100 mg PO QHS nitroglycerin 0.4 mg tablet, sublingual 0.4 mg SUBLINGUAL PRN PRN (Reason: Cardiac/Chest Pain) Qty: 25 3RF cholecalciferol (vitamin D3) 25 mcg (1,000 unit) capsule 25 mcg PO DAILY mecobalamin (vitamin B12) 1,000 mcg tablet,chewable 1,000 mcg PO DAILY ferrous sulfate [FeroSul] 325 mg (65 mg iron) tablet 325 mg PO DAILY aspirin 81 MG tablet,chewable 81 mg PO DAILY gemfibrozil 600 mg tablet 600 mg PO BID Qty: 180 3RF lisinopril 20 mg tablet 20 mg PO DAILY Qty: 90 3RF metoprolol tartrate 50 mg tablet 25 mg PO BID Qty: 180 3RF Primary Care Provider: Erica Higgins Referrals: Ramiro Junior MD [Non-Staff] - Activity Restrictions/Additional Instructions: Thank you for trusting us with your care today! The x-ray of the right knee was negative for fracture, dislocation or any bony abnormality. Please take Tylenol (2 pills, 650 mg), ibuprofen (2 pills, 400 mg) every 6 hours as needed for pain and fever control. Please ice your nose regularly. Please make sure you rest, add compression and elevate your knee regularly Please return to the emergency department if your symptoms change or worsen. Specific if pain gets worse, if you are unable to ambulate, if you develop numbness, tingling, weakness, discoloration or coolness to touch of your lower extremity. Please follow with orthopedic surgery for further outpatient evaluation and management. Print Language: Kinyarwanda Disposition Disposition: Home, Self Care
--- NOTE | 2024-02-17 14:27 | RAD_ITS ---
STUDY: X-RAY - RIGHT KNEE REASON FOR EXAM: Female, 68 years old. Right knee pain. 3 TECHNIQUE: view(s) of the knee. COMPARISON: None. FINDINGS: Normal visualized distal femur. Normal visualized proximal tibia and fibula. Normal proximal tibiofibular articulation. Normal medial femorotibial compartment. Normal lateral femorotibial compartment. Normal patellofemoral articulation. The soft tissue structures are unremarkable. RAD/Knee 3 Views IMPRESSION: Normal x-ray examination of the knee. Electronically Signed: Trevor Barrientos MD at 14:39 EDT ,
[2024-02-17 15:36] VITALS: BP 127/62; PULSE 83; RESP 16; TEMP 36.1; O2SAT 99
== END 2024-02-17 15:37 | disposition home or self-care (01) ==
PROVIDERS: Emergency Provider Emergency Medicine; PCP Family Medicine; Visit Provider Emergency Medicine
DX: S83.91XA Sprain of unspecified site of right knee, initial encounter (principal); L40.50 Arthropathic psoriasis, unspecified; I25.10 Atherosclerotic heart disease of native coronary artery without angina pectoris; E78.5 Hyperlipidemia, unspecified; F17.200 Nicotine dependence, unspecified, uncomplicated; I10 Essential (primary) hypertension; Z95.5 Presence of coronary angioplasty implant and graft; W10.9XXA Fall (on) (from) unspecified stairs and steps, initial encounter; Y93.K1 Activity, walking an animal
CPT/HCPCS: 73562; 99282

== ENCOUNTER → 2024-04-15 | Outpatient (CLI) | payer MEDICARE, OTHER, SELFPAY ==
--- NOTE | 2024-04-15 08:13 | NM_ITS ---
CLINICAL: 68-year-old female with history of hyperthyroidism. I-123 THYROID UPTAKE and SCAN COMPARISON: None available FINDINGS: The patient was administered a 320 uCi I-123 capsule by mouth. The 4-hour I-123 radioactive iodine thyroidal uptake was calculated to be 7.3% (normal 5 to 25%). The 24-hour I-123 radioactive iodine thyroidal uptake was calculated to be 21.1% (normal 5 to 40%). The I-123 thyroid scan demonstrates homogeneous radiopharmaceutical concentration throughout the left lobe of a U-shaped thyroid gland. 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 NM/Thyroid Uptake Single or Mult IMPRESSION: 1. NORMAL 4- and 24-hour I-123 radioactive iodine thyroidal uptakes. There is no scintigraphic evidence of hyperthyroidism on the current examination. 2. The I-123 thyroid scan demonstrates a hypofunctioning nodule involving the inferior pole of the right lobe thyroid colloid. Correlation with thyroid ultrasound is recommended for further evaluation. Electronically Signed: Ward Hall DO at 8:21 EDT ,
== END | disposition home or self-care (01) ==
LOC: NM 08:11
PROVIDERS: PCP Family Medicine; Referring Provider Internal Medicine Endocrinology, Diabetes & Metabolism; Visit Provider Internal Medicine Endocrinology, Diabetes & Metabolism
DX: E05.90 Thyrotoxicosis, unspecified without thyrotoxic crisis or storm (principal)
CPT/HCPCS: 78012; A9516